=== PATIENT | female | born 1955 | race Caucasian/White ===

== ENCOUNTER 2024-01-03 18:18 | Inpatient (IN) | payer OTHER, SELFPAY ==
[2024-01-03] VITALS (24 sets, daily range): BP systolic 77–103; BP diastolic 44–69; BMI 24.6
[2024-01-03 12:23] LABS: Hematocrit 30.5 % (37.0-47.0); Hemoglobin 10.6 g/dL (12.0-16.0); Mean Corp Hgb Conc. 34.8 g/dL (33.0-37.0); Mean Corpuscular Hgb 29.6 pg (27.0-31.0); Mean Corpuscular Volume 85.2 fL (81.0-99.0); Mean Platelet Volume 7.9 fL (7.4-10.4); Nucleated Red Blood Cells % 0 %; Platelet Count 542 10^3/uL (130-400); Red Blood Cell Count 3.58 10^6/uL (4.20-5.40); White Blood Cell Count 10.3 10^3/uL (4.8-10.8)
[2024-01-03 12:35] LABS: ALT (SGPT) < 10 U/L (0-35); AST (SGOT) 20 U/L (14-36); Alkaline Phosphatase 167 U/L (38-126); Blood Urea Nitrogen 19 mg/dl (7-17); Calcium 8.2 mg/dl (8.4-10.2); Carbon Dioxide 23 mmol/L (22-30); Chloride 89 mmol/L (98-107); Glucose 109 mg/dl (70-99); Potassium 3.1 mmol/L (3.5-5.1); Sodium 121 mmol/L (135-145); eGFR 49.31
[2024-01-03 12:48] LABS: COVID-19 Antigen Negative (Negative)
[2024-01-03 13:11] LABS: Absolute Neutrophils -Man Diff 8.1 10^3/uL (1.4-6.5); Atypical Lymphocytes 3 %; Band Neutrophils 21 % (0-3); Lymphocytes 11 % (20-51); Metamyelocytes 1 % (-); Monocytes 5 % (2-9); Myelocytes 1 % (-); Segmented Neutrophils 58 % (42-75)
[2024-01-03 13:13] LABS: Acanthocytes FEW; Anisocytosis Slight; Hypochromasia Slight; Normal RBC Morphology No; Ovalocytes Slight; Platelets Checked Yes; Total Cells Counted 100
--- NOTE | 2024-01-03 13:56 | ED.GENMED ---
History of Present Illness
<Natalya Rodriguez NP - Last Filed: 01/03/24 21:44>
General
Chief Complaint: Cold/Flu/URI Symptoms
Source: patient and spouse
Exam Limitations: none
Time Seen by Provider: 01/03/24 13:56
Nursing documentation reviewed up to this point in time: agreed with
Travel History
Have you had any contact with someone who has COVID-19?: No
Do you have any symptoms of coronavirus? Fever > 100 degrees, chills, cough, shortness of breath, sore throat, loss of taste or smell, muscle aches, or headache?: No
History of Present Illness
History of Present Illness:
Patient to ED with complaint of fever/chills, n/v, fatigue. States she was admitted her approx 2.5 weeks ago with same. States she was discharged danny 1.5 weeks ago but did not feel ready. Her symptoms began to escalate the day after discharge
home. SHe was not seen by PCP after her discharge home. She spoke with PCP today and was advised to come to ED. Did not take temp at home but states she has had chills since her discharge. Limited po intake due to ongoing n/v. Brought to ED by
spouse for eval.
Past History
<Natalya Rodriguez NP - Last Filed: 01/03/24 21:44>
Past History
ED Past Medical History: HTN, Other (kidney stones, menieire's, mac degen, [place]) and Other (colitis)
ED Past Surgical History: Cholecystectomy, , Urological (multiple cystos) and Other (History of surgery for a ventral hernia. )
Social History
Tobacco: Non-smoker
Alcohol: None
Drug: None
Personal:
Living: with family
Employment: Employed
Family History
Family History: CAD
Review of Systems
<Natalya Rodriguez NP - Last Filed: 01/03/24 21:44>
Review of Systems
Allergies reviewed?: Yes
All Other Systems: ROS reviewed and negative except as documented in HPI and ROS
Constitutional: Reports fever, fatigue and chills
EENT: Reports no symptoms
Respiratory: Reports cough
Cardiac: Reports no symptoms
ABD/GI: Reports nausea, vomiting and diarrhea
: Reports no symptoms
Musculoskeletal: Reports no symptoms
Skin: Reports no symptoms
Neurological: Reports weakness
Hematologic/Lymphatic: Reports no symptoms
Psychiatric: Reports no symptoms
Phy Exam
<Natalya Rodriguez SEWAGE SCREEN OPERATOR - Last Filed: 01/03/24 21:44>
General Physical Exam
General Presentation: mild distress
General age: appears stated age
General Skin: warm and dry
General Habitus: normal
General Mental: alert
General Hydration: dry mucous membranes
ENT Exam
ENT Exam: EOMI, TM's normal and neck supple
Cardiovascular Exam
Cardiovascular Exam: regular rate/rhythm and no edema
Pulmonary Exam
Pulmonary Exam: lungs clear, no respiratory distress and chest non tender
Gastrointestinal Exam
Gastrointestinal Exam: normal bowel sounds, non tender and soft
Musculoskeletal Exam
Musculoskeletal Exam: full ROM and neuro vasc intact
Skin Exam
Skin Exam: normal color, warm/dry and no rash
Psychiatric Exam
Psychiatric Exam: normal mood/affect
Course
<Natalya Rodriguez SEWAGE SCREEN OPERATOR - Last Filed: 01/03/24 21:44>
Orders/Labs/Results
Orders:
Orders
01/03/24 12:00
COVID-19 Antigen Urgent
Source: Nasal Swab
Complete Blood Count/With Diff Urgent
Comprehensive Metabolic Panel Urgent
Erythrocyte Sed Rate Urgent
Comment: ADD ON
Magnesium Urgent
Comment: MAG ADDED ON BY FLOOR 3:50PM 01-03-24
Manual Differential Urgent
Influenza A+B Rapid Molecular Urgent
VICKI Source: Nasal Swab
Specimen Description:
01/03/24 14:06
0.9% Sodium Chloride 1000 ml [Nss] 1,000 ml IV BOLUS
Acetaminophen [Tylenol] 1,000 mg PO NOW STA
01/03/24 14:07
Ondansetron Injectable [Zofran] 4 mg IV NOW STA
01/03/24 14:08
CR Chest - 2 Views Urgent
Comment:
Reason For Exam: fever, cough
01/03/24 14:25
Lactate Level [Lactic Acid] Urgent
Blood Culture Urgent
VICKI Source: Blood/Venous
Specimen Description:
01/03/24 14:30
Potassium Chloride [KCl] 40 meq 0.9% Sodium Chloride 250 ml [Nss] 250 ml IV NOW
01/03/24 Dinner
Clear Liquid
At Your Request: Limited Participation
01/03/24 15:51
Add On- LAB Urgent
Tests Added?: magnesium
01/03/24 16:13
Consult Nephrology [NEPHROLOGY CONSULT] Urgent
Consulting Provider: Hussain Chawla V.
Was physician already notified: Yes
01/03/24 16:46
C-Reactive Protein Stat
Comment: ADDED TO SPECIMEN IN LAB
Procalcitonin Stat
PCT Algorithmm Indication: Sepsis
01/03/24 16:55
CT Abd/pelvis W Iv Cont Urgent
Comment:
Reason For Exam: fever, diarrhea
01/03/24 17:00
3% Sodium Chloride 250 ml [Sodium Chloride 3%] 250 ml IV ONCE
01/03/24 17:01
Admit/Transfer Patient As Directed
Co-Sign Provider:
Level of Care: Inpatient admission
Assign to:: IMU- Intermediate Care
Physician / Group: do, tutu
Diagnosis: Diarrhea, fever, hyponatremia
Reason for Hospitalization: Diarrhea, fever, hyponatremia
Expected length of stay greater than two midnights?: Yes
ELOS- Estimated Length of Stay in days: 3
I certify the patient meets the requirements for IP care: Yes
01/03/24 17:03
Code Status As Directed
Resuscitation Status: Full Code
01/03/24 17:06
Magnesium Sulfate 2 Gram/50 ml [Magnesium Sulfate] 2 gram in 50 ml IV NOW
01/03/24 17:07
Blood Culture Urgent
VICKI Source: Blood/Venous
Specimen Description:
01/03/24 18:00
Piperacillin/Tazo 2.25 Gram [Zosyn] 2.25 grams in 50 ml IV Q6H
01/03/24 18:18
Ova & Parasites Giardia/Crypto AG [Giardia/Cryptosporidium Ag] Urgent
VICKI Source: Feces/Stool
Specimen Description:
Date Specimen was Collected: 01/03/24
Time Specimen was Collected: 18:17
STOOL [C difficile Antigen & Toxins] Urgent
VICKI Source: Feces/Stool
Specimen Description:
Date Specimen was Collected: 01/03/24
Time Specimen was Collected: 18:17
Stool Culture Urgent
VICKI Source: Feces/Stool
Specimen Description:
Date Specimen was Collected: 01/03/24
Time Specimen was Collected: 18:17
01/03/24 19:18
Acetaminophen [Tylenol] 650 mg PO Q4HPRN PRN
Enoxaparin Sodium [Lovenox] 40 mg SC QPM
Guaifenesin [Mucinex] 600 mg PO BIDPRN PRN
Lactobac/Bifidobac [Visbiome] 1 cap PO DAILY
Midodrine [ProAmatine] 5 mg PO Q4HPRN PRN
Ondansetron Injectable [Zofran] 4 mg IV Q6HPRN PRN
Oxycodone [Roxicodone] 5 mg PO Q4HPRN PRN
01/03/24 19:18
Consult Gastroenterology [GASTROINTESTINAL CONSULT] Routine
Consulting Provider: Beto Lo
Was physician already notified: Yes
Reason for consult: diarrhea, fever
Activity As Directed
Activity Level: Ambulate
Vital Signs As Directed
Frequency: Per unit guidelines
DX Deep Vein Thrombosis Video Routine
01/03/24 20:00
Potassium Chloride [KCl] 40 meq PO Q6H
01/03/24 20:53
Osmolality, Random Urine Urgent
Date Specimen was Collected: 01/03/24
Time Specimen was Collected: 20:31
Urinalysis Reflex To Culture Urgent
Date Specimen was Collected: 01/03/24
Time Specimen was Collected: 20:31
Urine Sodium Urgent
Date Specimen was Collected: 01/03/24
Time Specimen was Collected: 20:31
01/03/24 22:00
Serum Osmolality Urgent
01/04/24 06:00
Basic Metabolic Panel IN AM
Basic Metabolic Panel IN AM
Complete Blood Count/With Diff IN AM
Cortisol, Random IN AM
Magnesium IN AM
TSH IN AM
Uric Acid IN AM
01/05/24 06:00
Magnesium IN AM
01/06/24 06:00
Magnesium IN AM
Abnormal Lab Results
01/03/24 01/03/24
12:00 16:46
RBC 3.58 L 10^6/uL
(4.20-5.40)
Hgb 10.6 L g/dL
(12.0-16.0)
Hct 30.5 L %
(37.0-47.0)
Plt Count 542 H 10^3/uL
(130-400)
Abs Neuts (Manual) 8.1 H 10^3/uL
(1.4-6.5)
Band Neutrophils 21 H %
(0-3)
Lymphocytes (Manual) 11 L %
(20-51)
ESR 87 H mm/hour
(0-20)
Sodium 121 L mmol/L
(135-145)
Potassium 3.1 L mmol/L
(3.5-5.1)
Chloride 89 L mmol/L
(98-107)
BUN 19 H mg/dl
(7-17)
Creatinine 1.2 H mg/dL
(0.6-1.0)
Glucose 109 H mg/dl
(70-99)
Calcium 8.2 L mg/dl
(8.4-10.2)
Magnesium 1.4 L mg/dl
(1.6-2.3)
Alkaline Phosphatase 167 H U/L
(38-126)
C-Reactive Protein 166.70 H mg/L
(0.0-10.00)
Total Protein 6.0 L g/dl
(6.3-8.2)
Albumin 3.0 L g/dl
(3.5-5.0)
Procalcitonin 0.42 H ng/ml
(0.0-0.25)
01/03/24 12:00
01/03/24 12:00
Vital Signs
Initial and Last Documented VS:
Initial Vital Signs
Temp Pulse BP Pulse Ox
102.8 F H 108 102/69 99
01/03/24 11:53 01/03/24 11:53 01/03/24 11:53 01/03/24 11:53
Last Documented Vital Signs
Temp Pulse Resp BP Pulse Ox
98.2 F 81 22 93/60 100
01/03/24 19:27 01/03/24 19:15 01/03/24 19:15 01/03/24 19:15 01/03/24 19:15
<Fady Wilcox MD - Last Filed: 01/03/24 18:12>
Orders/Labs/Results
Orders:
Orders
01/03/24 12:00
COVID-19 Antigen Urgent
Source: Nasal Swab
Complete Blood Count/With Diff Urgent
Comprehensive Metabolic Panel Urgent
Erythrocyte Sed Rate Urgent
Comment: ADD ON
Magnesium Urgent
Comment: MAG ADDED ON BY FLOOR 3:50PM 01-03-24
Manual Differential Urgent
Influenza A+B Rapid Molecular Urgent
VICKI Source: Nasal Swab
Specimen Description:
01/03/24 14:06
0.9% Sodium Chloride 1000 ml [Nss] 1,000 ml IV BOLUS
Acetaminophen [Tylenol] 1,000 mg PO NOW STA
01/03/24 14:07
Ondansetron Injectable [Zofran] 4 mg IV NOW STA
01/03/24 14:08
CR Chest - 2 Views Urgent
Comment:
Reason For Exam: fever, cough
01/03/24 14:25
Lactate Level [Lactic Acid] Urgent
Blood Culture Urgent
VICKI Source: Blood/Venous
Specimen Description:
01/03/24 14:30
Potassium Chloride [KCl] 40 meq 0.9% Sodium Chloride 250 ml [Nss] 250 ml IV NOW
01/03/24 Dinner
Clear Liquid
At Your Request: Limited Participation
01/03/24 15:51
Add On- LAB Urgent
Tests Added?: magnesium
01/03/24 16:13
Consult Nephrology [NEPHROLOGY CONSULT] Urgent
Consulting Provider: Hussain Chawla V.
Was physician already notified: Yes
01/03/24 16:46
C-Reactive Protein Stat
Comment: ADDED TO SPECIMEN IN LAB
Procalcitonin Stat
PCT Algorithmm Indication: Sepsis
01/03/24 16:55
CT Abd/pelvis W Iv Cont Urgent
Comment:
Reason For Exam: fever, diarrhea
01/03/24 17:00
3% Sodium Chloride 250 ml [Sodium Chloride 3%] 250 ml IV ONCE
01/03/24 17:01
Admit/Transfer Patient As Directed
Co-Sign Provider:
Level of Care: Inpatient admission
Assign to:: IMU- Intermediate Care
Physician / Group: tutu aleman
Diagnosis: Diarrhea, fever, hyponatremia
Reason for Hospitalization: Diarrhea, fever, hyponatremia
Expected length of stay greater than two midnights?: Yes
ELOS- Estimated Length of Stay in days: 3
I certify the patient meets the requirements for IP care: Yes
01/03/24 17:03
Code Status As Directed
Resuscitation Status: Full Code
01/03/24 17:06
Magnesium Sulfate 2 Gram/50 ml [Magnesium Sulfate] 2 gram in 50 ml IV NOW
01/03/24 17:07
Blood Culture Urgent
VICKI Source: Blood/Venous
Specimen Description:
01/03/24 18:00
Piperacillin/Tazo 2.25 Gram [Zosyn] 2.25 grams in 50 ml IV Q6H
01/03/24 18:18
Ova & Parasites Giardia/Crypto AG [Giardia/Cryptosporidium Ag] Urgent
VICKI Source: Feces/Stool
Specimen Description:
Date Specimen was Collected: 01/03/24
Time Specimen was Collected: 18:17
STOOL [C difficile Antigen & Toxins] Urgent
VICKI Source: Feces/Stool
Specimen Description:
Date Specimen was Collected: 01/03/24
Time Specimen was Collected: 18:17
Stool Culture Urgent
VICKI Source: Feces/Stool
Specimen Description:
Date Specimen was Collected: 01/03/24
Time Specimen was Collected: 18:17
01/03/24 19:18
Acetaminophen [Tylenol] 650 mg PO Q4HPRN PRN
Enoxaparin Sodium [Lovenox] 40 mg SC QPM
Guaifenesin [Mucinex] 600 mg PO BIDPRN PRN
Lactobac/Bifidobac [Visbiome] 1 cap PO DAILY
Midodrine [ProAmatine] 5 mg PO Q4HPRN PRN
Ondansetron Injectable [Zofran] 4 mg IV Q6HPRN PRN
Oxycodone [Roxicodone] 5 mg PO Q4HPRN PRN
01/03/24 19:18
Consult Gastroenterology [GASTROINTESTINAL CONSULT] Routine
Consulting Provider: Beto Lo
Was physician already notified: Yes
Reason for consult: diarrhea, fever
Activity As Directed
Activity Level: Ambulate
Vital Signs As Directed
Frequency: Per unit guidelines
DX Deep Vein Thrombosis Video Routine
01/03/24 20:00
Potassium Chloride [KCl] 40 meq PO Q6H
01/03/24 20:53
Osmolality, Random Urine Urgent
Date Specimen was Collected: 01/03/24
Time Specimen was Collected: 20:31
Urinalysis Reflex To Culture Urgent
Date Specimen was Collected: 01/03/24
Time Specimen was Collected: 20:31
Urine Sodium Urgent
Date Specimen was Collected: 01/03/24
Time Specimen was Collected: 20:31
01/03/24 22:00
Serum Osmolality Urgent
01/04/24 06:00
Basic Metabolic Panel IN AM
Basic Metabolic Panel IN AM
Complete Blood Count/With Diff IN AM
Cortisol, Random IN AM
Magnesium IN AM
TSH IN AM
Uric Acid IN AM
01/05/24 06:00
Magnesium IN AM
01/06/24 06:00
Magnesium IN AM
Abnormal Lab Results
01/03/24 01/03/24
12:00 16:46
RBC 3.58 L 10^6/uL
(4.20-5.40)
Hgb 10.6 L g/dL
(12.0-16.0)
Hct 30.5 L %
(37.0-47.0)
Plt Count 542 H 10^3/uL
(130-400)
Abs Neuts (Manual) 8.1 H 10^3/uL
(1.4-6.5)
Band Neutrophils 21 H %
(0-3)
Lymphocytes (Manual) 11 L %
(20-51)
ESR 87 H mm/hour
(0-20)
Sodium 121 L mmol/L
(135-145)
Potassium 3.1 L mmol/L
(3.5-5.1)
Chloride 89 L mmol/L
(98-107)
BUN 19 H mg/dl
(7-17)
Creatinine 1.2 H mg/dL
(0.6-1.0)
Glucose 109 H mg/dl
(70-99)
Calcium 8.2 L mg/dl
(8.4-10.2)
Magnesium 1.4 L mg/dl
(1.6-2.3)
Alkaline Phosphatase 167 H U/L
(38-126)
C-Reactive Protein 166.70 H mg/L
(0.0-10.00)
Total Protein 6.0 L g/dl
(6.3-8.2)
Albumin 3.0 L g/dl
(3.5-5.0)
Procalcitonin 0.42 H ng/ml
(0.0-0.25)
01/03/24 12:00
01/03/24 12:00
Vital Signs
Initial and Last Documented VS:
Initial Vital Signs
Temp Pulse BP Pulse Ox
102.8 F H 108 102/69 99
01/03/24 11:53 01/03/24 11:53 01/03/24 11:53 01/03/24 11:53
Last Documented Vital Signs
Temp Pulse Resp BP Pulse Ox
98.2 F 81 22 93/60 100
01/03/24 19:27 01/03/24 19:15 01/03/24 19:15 01/03/24 19:15 01/03/24 19:15
<Natalya Rodriguez NP - Last Filed: 01/03/24 21:44>
*Critical Care Note
Total Time (30-74mins, 75-104mins- exclusive of procedures): Not Applicable
<Natalya Rodriguez NP - Last Filed: 01/03/24 21:44>
Update Note
Update Note:
Patient to ED with complaint of fever/chills, weakness, n/v/d. States symptoms have been ongoing since her discharge from her 2.5 weeks ago. Reports poor appetite. Na today 121, K 3.1 creat 1.2. BP 90's systolic. Given 1L NSS rapidly. K rider
40meq also initiated. No stools since coming to ED. No urine at this time. Temp of 103 initially. Given tylenol 1000mg, temp now 100. She reports feeling somewhat better. Dr. Chawla consulted. Recommends NS 3% at 30cc/hr, order placed.
ED Attending Note
<Natalya Rodriguez NP - Last Filed: 01/03/24 21:44>
-
Portions of this chart may have been created with voice recognition software.� Occasional wrong word or��sound alike� substitutions may have occurred due to the inherent limitations of voice recognition software.
<Fady Wilcox MD - Last Filed: 01/03/24 18:12>
ED Attending Note
Patient seen and examined by attending physician: Yes
ED Attending Note:
Patient discharged home from the hospital 2 weeks ago, after being treated for electrolyte abnormalities secondary to presumed viral illness, returns to ED secondary to persistent intermittent cough, along with nausea, vomiting, and diarrhea.
Patient reports generalized weakness. Upon arrival, patient found to be febrile, which she was not aware of. Denies abdominal pain. Denies back pain. Denies chest pain. Denies headache. Denies neck pain. Denies loss of appetite, however does
state that she has lost weight since being discharged home.
Physical Exam
General: mild distress, not acutely ill. febrile. hypotensive. weak appearing.
Head: nc/at. eomi
Neck: supple. no meningeal signs.
Heart: s1/s2 regular rate and rhythm, no murmur. equal radial pulses.
Lungs: no acute respiratory distress. clear bilaterally
Abdomen: normal bowel sounds. not tender. no distention
Neuro: alert and oriented. no focal neurological deficits
Skin: no rash
Psychiatric: well kept. interactive and cooperative
Extremities: no edema. no calf tenderness.
History and exam concerning for ongoing viral illness, resulting in significant electrolyte abnormalities, including hyponatremia and hypokalemia. After discussion with nephrology, decision made to start patient on 3% sodium infusion. Patient will
be admitted for further evaluation and treatment. Blood pressure labile, remains mildly hypotensive. As such, will provide additional IV fluid bolus. If not improving, may need to start short course of pressor support.
Critical care statement: A total of 40 minutes of critical care time was provided for this patient. This includes management of unstable vital signs, evaluation of the patient at bedside, reviewing the patient's pertinent medical records, discussion
with consultants, review of old EKGs and review of pertinent medical records. This time with separate from time utilized to perform the aforementioned documented procedures
Discharge Plan
Departure
Patient Disposition: Admit
Date of Disposition: 01/03/24
Time of Disposition: 15:31
Presentation/result/management discussed w/ accepting MD/DO: Hospitalist
Condition: Fair
Covid-19: Not Applicable
Discharge Problem:
Acute hyponatremia, Dehydration
Interventions
Interventions:
*Risk Screen - Suicide Last Done: 01/03/24 19:33
*General Assessment Last Done: 01/03/24 19:33
*Neglect/Abuse Screening Last Done: 01/03/24 19:33
ED- Fall Risk Assessment Last Done: 01/03/24 15:35
*ED COVID-19 Vaccine History Last Done: 01/03/24 15:35
*Nursing Disposition Last Done: 01/03/24 19:33
ED- Pulmonary Assessment Last Done: 01/03/24 14:36
Discharge Date and Time
Discharge Date/Time: 01/03/24 19:35
[2024-01-03] MEDS: ZOFRAN 4 MG IV (14:21)
[2024-01-03] MEDS: NSS 1000 IV (14:22)
[2024-01-03] MEDS: TYLENOL 1000 MG PO (14:24)
[2024-01-03 14:48] LABS: Lactic Acid 1.2 mmol/L (0.7-2.0)
[2024-01-03] MEDS: KCL 270 MEQ IV (15:24)
[2024-01-03 16:26] LABS: Magnesium 1.4 mg/dl (1.6-2.3)
--- NOTE | 2024-01-03 16:36 | HPS.HSE ---
Family Physician
-
Family Physician: GABE Borrero
Chief Complaint
-
Persistent nausea and diarrhea
History of Present Illness
HPI: 68-year-old female with a past medical history of collagenous colitis, hypertension and chronic loose stools presents with a 3-4-week history of nausea, vomiting, and loose stools. Patient was admitted 12/16/2023 through 12/17/2023 for the same
symptoms and discharged. She states that she continued to be nauseous after discharge, with profuse diarrhea. States that this is different from her usual loose stools. She follows with Dr. Herring. She does have associated abdominal cramping with
her bowel movements. No vomiting since her previous hospital admission. She is febrile. No dysuria, no shortness of breath. Does have a dry cough.
Medical History
Past Medical History
Past Medical History: Reports Other
Additional Past Medical History:
Collagenous colitis
C. difficile diarrhea
E. coli diarrhea
Hypertension
M�ni�re's disease
Nephrolithiasis
Macular degeneration
Obstructive sleep apnea
Past Surgical History: Reports Other
Additional Past Surgical History:
�Cholecystectomy, (x2), Orthopedic (CTR b/l), Other (Ventral hernia repair)
Social History
Tobacco: Non-smoker
Alcohol: None
Drug: None
Personal:
Living: With Family
Family History
Family History: CAD
Allergies / Home Medications
Allergies reflects when Allergies were last updated in [facility].
Home Medications with original date entered in [facility]
Allergy/Medication List:
Allergies
Allergy/AdvReac Type Severity Reaction Status Date / Time
No Known Drug Allergies Allergy Unknown Verified 01/03/24 11:55
Home Medications Table - record
Medication Instructions Recorded Confirmed
guaifenesin 600 mg tablet, 600 mg PO BIDPRN PRN cough 12/16/23 01/03/24
extended release 12 hr
therapeutic multivitamin 1 tab PO DAILY Supplement 12/16/23 01/03/24
Lactobac no.2-Bifidobac no.1-S. 1 cap PO DAILY Supplement #0 caps 12/17/23 01/03/24
thermo 112.5 billion cell capsule
(Visbiome)
ondansetron HCl 4 mg tablet 4 mg PO Q6HPRN PRN nausea/vomiting 01/03/24 01/03/24
Review of Systems
-
A 12 point ROS was completed and negative except as noted: Yes
Physical Exam
Vital Signs
Vital Signs
Temp Pulse Resp BP Pulse Ox
100.5 F H 91 19 84/52 96
01/03/24 15:33 01/03/24 15:33 01/03/24 15:33 01/03/24 15:33 01/03/24 15:33
Physical Exam
General: No Apparent Distress
HEENT: NormoCephalic, Anicteric, Moist mucous membranes and Atraumatic
Respiratory: Clear
Cardiac: S1/S2 and Regular Rhythm
GI: Soft, Non Tender, Non Distended and Normal Bowel Sounds
Musculoskeletal: No Clubbing, No Cyanosis and No Edema
Neuro: Awake, Alert and Oriented
Psych: Calm
Laboratory Results
-
01/03/24 12:00
01/03/24 12:00
Laboratory Results
Lactic Acid 1.2 mmol/L (0.7-2.0) 01/03/24 14:25
Total Bilirubin 1.0 mg/dl (0.2-1.3) 01/03/24 12:00
AST 20 U/L (14-36) 01/03/24 12:00
ALT < 10 U/L (0-35) 01/03/24 12:00
Alkaline Phosphatase 167 U/L (38-126) H 01/03/24 12:00
Impression/Plan
-
HPI: 68-year-old female with a past medical history of collagenous colitis, hypertension and chronic loose stools presents with a 3-4-week history of nausea, vomiting, and loose stools. Patient was admitted 12/16/2023 through 12/17/2023 for the same
symptoms and discharged. She states that she continued to be nauseous after discharge, with profuse diarrhea. States that this is different from her usual loose stools. She follows with Dr. Herring. She does have associated abdominal cramping with
her bowel movements. No vomiting since her previous hospital admission. She is febrile. No dysuria, no shortness of breath. Does have a dry cough.
#Fever
#Bandemia
#Diarrhea
Check blood cultures x 2, check stool studies, check procalcitonin, check CT abdomen pelvis with IV and p.o. contrast
Consult GI, give Zosyn after cultures are drawn
#Hypotension
IV fluids, midodrine as needed
#Hyponatremia
Sodium 121, urine studies ordered
Nephrology consulted, recommended hypertonic saline
#Hypokalemia
Potassium 3.1, repeat
Recheck a.m. potassium
#Hypomagnesemia
Replete, recheck a.m. magnesium
#Stage III CKD
Creatinine 1.2, okay to have IV contrast per nephrology
#Chronic normocytic anemia
Monitor hemoglobin
DVT prophylaxis�subcu Lovenox
Full code
Total time spent to see the patient on the floor, examine the patient, review data and lab results, discuss treatment plan with patient, nursing staff around 75 minutes.
[2024-01-03] MEDS: SODIUM CHLORIDE 3% 250 IV (17:04)
[2024-01-03 17:21] LABS: Procalcitonin 0.42 ng/ml (0.0-0.25)
--- NOTE | 2024-01-03 17:24 | W.CON.NEPH ---
Consultation
-
Date/Time Consultation Requested: 01/03/2024 430pm
Date/Time Consultation Performed: 01/03/2024 4:30 PM
Requesting Provider:
Performing Provider: [place]
Reason for Consultation: Hyponatremia
Medical History
-
Chief Complaint: Hyponatremia
History of Present Illness:
The patient is a 68-year-old female with a past medical history of hyponatremia recently admitted a few weeks prior with hyponatremia thought to be due to hypovolemic hyponatremia. She was given IV fluids with normal saline and eventually
discharged with a serum sodium level of 129 on day 12/17/2023. During that initial admission in late November she had been having issues with nausea vomiting fevers chills failure to thrive and fatigue. She now presents with similar symptoms once
again and a serum sodium of 121. The patient is hypotensive with systolic blood pressures in the high 80s on presentation to the emergency. Her creatinine level is also slightly elevated at 1.2 and she is febrile. She has a past medical history
of hypertension but has been off her REGGIE inhibitor since her last admission. She is maintained on Zofran as an outpatient for her ongoing GI issues including vomiting and diarrhea. Nephrology was consulted for her hyponatremia.
Past Medical History
Obstructive sleep apnea
Prior history of nephrolithiasis
Past Medical History: HTN
Social History
No tobacco or alcohol abuse
Living: With Family
Family History
Notable for coronary artery disease but no CKD
Allergies / Home Medications
Allergy/AdvReac Type Severity Reaction Status Date / Time
No Known Drug Allergies Allergy Unknown Verified 01/03/24 11:55
Medication Instructions Recorded Confirmed Type
guaifenesin 600 mg tablet, 600 mg PO BIDPRN PRN cough 12/16/23 01/03/24 History
extended release 12 hr
therapeutic multivitamin 1 tab PO DAILY Supplement 12/16/23 01/03/24 History
Lactobac no.2-Bifidobac no.1-S. 1 cap PO DAILY Supplement #0 caps 12/17/23 01/03/24 Rx
thermo 112.5 billion cell capsule
(Visbiome)
ondansetron HCl 4 mg tablet 4 mg PO Q6HPRN PRN nausea/vomiting 01/03/24 01/03/24 History
Review of Systems
-
History Source: Patient
All other systems: Negative unless noted
Constitutional: Fever, Weight Loss, Fatigue, Sleep Disturbance and Chills
EENT: No Symptoms
Respiratory: No Symptoms
Cardiac: No Symptoms
Abdomen/GI: Nausea, Vomiting and Diarrhea (Decreased appetite)
: No Symptoms
Musculoskeletal: Edema (Noted edema)
Skin: No Symptoms
Neurological: No Symptoms
Endocrine: No Symptoms
Hematologic/Lymphatic: No Symptoms
Physical Exam
Vital Signs
Vital Signs
Temp Pulse Resp BP Pulse Ox
100.5 F H 86 21 95/57 96
01/03/24 15:33 01/03/24 16:42 01/03/24 16:42 01/03/24 17:15 01/03/24 16:30
Lab Results
01/03/24 12:00
01/03/24 12:00
WBC 10.3 10^3/uL (4.8-10.8) 01/03/24 12:00
RBC 3.58 10^6/uL (4.20-5.40) L 01/03/24 12:00
Hgb 10.6 g/dL (12.0-16.0) L 01/03/24 12:00
Hct 30.5 % (37.0-47.0) L 01/03/24 12:00
Plt Count 542 10^3/uL (130-400) H 01/03/24 12:00
Sodium 121 mmol/L (135-145) L 01/03/24 12:00
Potassium 3.1 mmol/L (3.5-5.1) L 01/03/24 12:00
Chloride 89 mmol/L (98-107) L 01/03/24 12:00
Carbon Dioxide 23 mmol/L (22-30) 01/03/24 12:00
BUN 19 mg/dl (7-17) H 01/03/24 12:00
Creatinine 1.2 mg/dL (0.6-1.0) H 01/03/24 12:00
eGFR 49.31 01/03/24 12:00
Glucose 109 mg/dl (70-99) H 01/03/24 12:00
Calcium 8.2 mg/dl (8.4-10.2) L 01/03/24 12:00
Albumin 3.0 g/dl (3.5-5.0) L 01/03/24 12:00
Physical Exam
General: Awake, AOx3 and No Distress
HEENT: PERRL, EOMI, Anicteric, Conjunctivae Clear, Ear/Nose Intact, Hearing Normal, Oropharynx Clear/Moist, Dentition Intact, Neck Supple, Trachea Midline, No JVD and No Thyromegaly
Respiratory: Clear and Normal Excursion
Cardiac: S1/S2 and Edema (Trace edema)
Breast: Deferred by me
Abdomen: Soft, Nontender, Nondistended, Normal Bowel Sounds and No Hepatosplenomegaly
Rectal: Deferred by Provider
Genito-urinary: No Costovertebral Tender
Musculoskeletal: No Clubbing, No Cyanosis and Other (Trace edema pretibial)
Skin: No Rash
Neuro: Nonfocal/Grossly Intact
Hematologic/Lymphatic: No Cervical Lymphadenopathy, No Submandibular Lymphadenopathy and No Supraclavicular Lymphadenopathy
Psych: Mood/afflect pleasant, Insight/judgement good and Appropriate
Assessment/Plan
-
Impression:
Hyponatremia: Euvolemic/Hypovolemic
Hypokalemia
Fevers/nausea/vomiting/diarrhea/failure to thrive
History of nephrolithiasis
History of obstructive sleep apnea
Plan:
Hyponatremia
-Will provide 3% saline at 30 cc/h for a total of 250 cc
-Fluid restriction of 48 ounces daily
-Follow-up serum uric acid level TSH, cortisol, urine osmolarity, urine sodium
-Patient will have blood cultures and CAT scan of abdomen and pelvis to workup GI symptoms and fever and hypotension
Hypokalemia
-Likely due to ongoing GI losses and poor intake
-Replete potassium
[2024-01-03] MEDS: MAGNESIUM SULFATE 50 IV (18:13)
[2024-01-03 18:52] LABS: Erythrocyte Sed Rate 87 mm/hour (0-20)
[2024-01-03] MEDS: TYLENOL 650 MG PO (20:36)
[2024-01-03] MEDS: ProAmatine 5 MG PO (20:36)
[2024-01-03] MEDS: VISBIOME 1 CAP PO (20:36)
[2024-01-03] MEDS: KCL 40 MEQ PO (20:37)
[2024-01-03] MEDS: LOVENOX 40 MG SC (20:37)
[2024-01-03] MEDS: NSS with KCL 40 MEQ 1000 IV (20:37)
[2024-01-03] MEDS: ZOSYN 50 IV (20:45)
[2024-01-03 21:01] LABS: Urine Albumin Trace (Neg - Trace); Urine Bilirubin Negative (Negative); Urine Character Slightly Cloudy (Clear); Urine Color Yellow; Urine Glucose Negative (Negative); Urine Ketone Negative (Negative); Urine Leukocyte 1+ (Negative); Urine Nitrite Negative (Negative); Urine Occult Blood Negative (Negative); Urine Urobilinogen Negative (Neg - 1+)
[2024-01-03 21:02] LABS: Osmolality Urine 141 mOsm/kg (300-900)
[2024-01-03 21:10] LABS: Urine Red Blood Cell None Seen /HPF (0-2); Urine Squamous Cell >30 /LPF (Few); Urine White Cell 21-25 /HPF (0-5)
[2024-01-03 21:12] LABS: Urine Sodium 10 mmol/L (30-90)
[2024-01-03 23:17] LABS: Osmolality Serum 260 mOsm/kg (275-300)
[2024-01-04] VITALS (17 sets, daily range): BP systolic 81–128; BP diastolic 54–81
[2024-01-04] MEDS: ZOSYN 50 IV ×5 (00:35→23:02)
[2024-01-04] MEDS: KCL PO (02:03)
--- NOTE | 2024-01-04 02:55 | PTCARENOTE ---
pt admitted from ED- pt is AAOx3- able to make needs known. able to walk x1 assist, little weak. using BSC. BP's little soft- PRN midodrine given per JAN. IV fluids hung, oriented to room, call burton within reach, care ongoing.
[2024-01-04] MEDS: ProAmatine 5 MG PO (04:07)
[2024-01-04 04:28] LABS: Hematocrit 27.4 % (37.0-47.0); Hemoglobin 9.5 g/dL (12.0-16.0); Mean Corp Hgb Conc. 34.7 g/dL (33.0-37.0); Mean Corpuscular Hgb 29.5 pg (27.0-31.0); Mean Corpuscular Volume 85.1 fL (81.0-99.0); Mean Platelet Volume 7.8 fL (7.4-10.4); Platelet Count 413 10^3/uL (130-400); Red Blood Cell Count 3.22 10^6/uL (4.20-5.40); Red Cell Dist. Width 13.4 % (11.5-14.5); White Blood Cell Count 8.9 10^3/uL (4.8-10.8)
[2024-01-04 04:58] LABS: Blood Urea Nitrogen 16 mg/dl (7-17); Calcium 7.4 mg/dl (8.4-10.2); Carbon Dioxide 15 mmol/L (22-30); Chloride 110 mmol/L (98-107); Estimated Creatinine Clearance 39 ml/min; Glucose 94 mg/dl (70-99); Magnesium 2.2 mg/dl (1.6-2.3); Potassium 4.8 mmol/L (3.5-5.1); Sodium 131 mmol/L (135-145); Uric Acid 7.8 mg/dl (2.5-6.2); eGFR > 60.00
[2024-01-04 05:24] LABS: TSH 0.13 uIU/ml (0.47-4.68)
[2024-01-04 05:25] LABS: Cortisol, Random 56.8 ug/dl
[2024-01-04 07:57] LABS: Band Neutrophils 21 % (0-3); Lymphocytes 7 % (20-51); Monocytes 2 % (2-9); Normal RBC Morphology Yes; Platelets Checked Yes; Segmented Neutrophils 70 % (42-75)
[2024-01-04 07:58] LABS: Total Cells Counted 100
[2024-01-04] MEDS: VISBIOME 1 CAP PO (08:12)
--- NOTE | 2024-01-04 08:49 | W.PN.HOSP.TC ---
Today's Communication/Plan
-
see bold
Assessment / Plan
Assessment / Plan
HPI: 68-year-old female with a past medical history of collagenous colitis, hypertension and chronic loose stools presents with a 3-4-week history of nausea, vomiting, and loose stools.� Patient was admitted 12/16/2023 through 12/17/2023 for the same
symptoms and discharged.� She states that she continued to be nauseous after discharge, with profuse diarrhea.� States that this is different from her usual loose stools.� She follows with Dr. Herring.� She does have associated abdominal cramping with
her bowel movements.� No vomiting since her previous hospital admission.� She is febrile.� No dysuria, no shortness of breath.� Does have a dry cough.
#Fever
#Bandemia
#Diarrhea
CRP 166, ESR 87, procalcitonin 0.42
C. difficile negative, Cryptosporidium negative, stool cultures pending, blood culture negative to date
CT abdomen and pelvis shows pancolitis
GI consulted, continue Zosyn, follow-up on stool cultures, may need flex sigmoidoscopy
#Hypotension
IV fluids, midodrine as needed
Maintain MAP greater than 65
#Hyponatremia
Cortisol normal, TSH low, check free T4
Appreciate nephrology input, sodium 131 today status post hypertonic saline, was 121 upon admission
Continue management as per nephrology
#Non-anion gap metabolic acidosis
Due to diarrhea, start oral sodium bicarb
#Hypokalemia
Repleted and resolved
#Hypomagnesemia
Repleted and resolved
#Stage III CKD
Creatinine 1.0, was 1.2
Continue to trend
#Chronic normocytic anemia
Monitor hemoglobin
DVT prophylaxis�subcu Lovenox
Full code
Total time spent to see the patient on the floor, examine the patient, review data and lab results, discuss treatment plan with patient,� nursing staff� around 51 minutes.
Physical Exam
General: No acute distress
HEENT: Normocephalic, Atraumatic, EOMI, MMM
Respiratory: Clear to Auscultation bilaterally
Cardiac: Normal S1/S2, Regular Rate and Rhythm
GI: Soft, mild tenderness, Nondistended, Normal Bowel Sounds
Extremities: No Clubbing, Cyanosis, or Edema
Anticipated Discharge: > 48 hours
Subjective/Interval History
-
Date of Service: January 04, 2024
Patient continues to have diarrhea. No nausea, no vomiting. She is tolerating her clear liquid diet. Fever resolved.
Objective Data
-
Labs:
Laboratory Results
01/04/24
04:19
WBC 8.9
Hgb 9.5 L
Hct 27.4 L
Plt Count 413 H D
Sodium 131 L D
Potassium 4.8 D
Chloride 110 H
Carbon Dioxide 15 L
BUN 16
Creatinine 1.0
Glucose 94
Calcium 7.4 L
Vital Signs:
Vital Signs
Temp Pulse Resp BP Pulse Ox
97.8 F 72 14 128/72 99
01/04/24 07:29 01/04/24 06:00 01/04/24 06:00 01/04/24 06:00 01/04/24 05:00
I&O
01/03/24 01/04/24 01/05/24
06:59 06:59 06:59
Intake Total 950 / 950
Balance 950 / 950
--- NOTE | 2024-01-04 10:00 | PTCARENOTE ---
Patient AAOx3. C/o diarrhea, denies nausea. Tolerating CLD, reports appetite improving. NSR on monitor. BPs soft, MD aware, PRNs if needed. C/o chills, no fever. Patient making needs known. Continuing to closely monitor patient.
--- NOTE | 2024-01-04 10:18 | W.PN.NEPH.PH ---
Today's Communication / Plan
-
Maintain fluid restriction
No more 3% saline today
Follow electrolyte
Pancolitis workup in process
Assessment/Plan
-
Impression:
Hyponatremia: Euvolemic/Hypovolemic
Hypokalemia
Fevers/nausea/vomiting/diarrhea/failure to thrive
History of nephrolithiasis
History of obstructive sleep apnea
Plan:
Hyponatremia
-provided 3% saline at 30 cc/h for a total of 250 cc, and sodium up from 121 to 131
-Fluid restriction of 48 ounces daily to continue, no more 3%
-Follow-up serum uric acid level TSH, cortisol, urine osmolarity, urine sodium: Uric acid 7.8, TSH 0.13, cortisol 57, urine osmolality 141 (no consistent with SIADH),urine sodium 10
-I suspect the patient's hyponatremia is likely due more to volume depletion and excess water intake as opposed to underlying SIADH mediated process given urine osmolality of 140
-Follow-up free T4
-Cultures pending
-Patient will have blood cultures and CAT scan of abdomen and pelvis to workup GI symptoms and fever and hypotension
-CT scan of abdomen reveals pancolitis
-
-
Date of Service: January 04, 2024
CC / HPI / ROS
-
Chief Complaint:
Hyponatremia
History of Present Illness:
Hyponatremia improved from 121-131 with 250 cc of 3% saline and fluid restrict
Hemodynamically labile
Review of Systems:
Nonoliguric
No chest pain or shortness of breath
poor po intake
Labs
-
Labs:
WBC 8.9 10^3/uL (4.8-10.8) 01/04/24 04:19
RBC 3.22 10^6/uL (4.20-5.40) L 01/04/24 04:19
Hgb 9.5 g/dL (12.0-16.0) L 01/04/24 04:19
Hct 27.4 % (37.0-47.0) L 01/04/24 04:19
Plt Count 413 10^3/uL (130-400) H D 01/04/24 04:19
Sodium 131 mmol/L (135-145) L D 01/04/24 04:19
Potassium 4.8 mmol/L (3.5-5.1) D 01/04/24 04:19
Chloride 110 mmol/L (98-107) H 01/04/24 04:19
Carbon Dioxide 15 mmol/L (22-30) L 01/04/24 04:19
BUN 16 mg/dl (7-17) 01/04/24 04:19
Creatinine 1.0 mg/dL (0.6-1.0) 01/04/24 04:19
eGFR > 60.00 01/04/24 04:19
Glucose 94 mg/dl (70-99) 01/04/24 04:19
Calcium 7.4 mg/dl (8.4-10.2) L 01/04/24 04:19
Albumin 3.0 g/dl (3.5-5.0) L 01/03/24 12:00
Physical Exam
-
Vital Signs:
Vital Signs
Temp Pulse Resp BP Pulse Ox
97.8 F 72 14 128/72 99
01/04/24 07:29 01/04/24 06:00 01/04/24 06:00 01/04/24 06:00 01/04/24 05:00
Cardiovascular:: Regular rate and rhythm
Respiratory:: Bilateral: CTA
Lung Excursion:: Normal
Abdomen:: Nontender and Soft
Bowel Sounds:: Decreased
Extremity Edema:: +1: Bilateral: (trace pitting edema)
Garza Catheter: No
[2024-01-04] MEDS: NSS 1000 IV ×2 (10:24→23:01)
[2024-01-04] MEDS: NSS with KCL 40 MEQ IV (10:26)
--- NOTE | 2024-01-04 11:38 | CON.GI ---
Addendum entered and electronically signed by Beto Lo MD 01/04/24 18:35:
I saw and examined the patient.
The PA's note was reviewed and I agree with the note.
Comment:
The patient is a 68 year-old female with h/o HTN, collagenous colitis, C. difficile x 3, E. coli 0157: H7, obstructive sleep apnea who p/w fevers, nausea,�diarrhea, chills and fatigue.� The patient had similar presentation 2 weeks ago and was sent
home. She had ongoing fevers, chills, myalgias and severe fatigue.� She was febrile at 102.8 and then went up to 103.4 �F in ER.� The patient was -ve for flu.�
Impression / Rec:
1. Diarrhea, fever, chills, fatigue - unclear etiology. Most consistent with infectious source, however currently shiga toxin, C. difficile, cryptosporidium and Giardia are all -ve.� We are still awaiting stool for Salmonella and Campylobacter.�
Blood cx -ve for growth.� COVID -ve.� She has electrolyte derangement likely from diarrhea (Na 121, K 3.1), seen by nephrology and being corrected.� Patient's sed rate is 87, CRP is 166.70, CT abdo/pel with IV contrast showed pancolitis. Will need
to wait for few stool study results, but ultimately, will likely need a repeat endo eval with biopsies which may find diagnosis. Should also consider ID consult. Will follow.
Addendum entered and electronically signed by GABE Neil 01/04/24 13:12:
Patient was treated in the past with Lialda for short period of time for lymphocytic colitis. Patient states that she did not get much of a response from this and was changed to probiotics since. She had a repeat colonoscopy in 2020 that did not
look like microscopic colitis, rather resolving infection. Stools have been the same since that time until now.
Original Note:
Consultation
-
Date/Time Consultation Requested: 01/03/24 1915
Date/Time Consultation Performed: 01/04/24 1100
Requesting Provider: Dr. Eligio Foy
Performing Provider: Dr. Lo/GABE Murcia
Reason for Consultation: diarrhea
Medical History
Chief Complaint / HPI
Chief Complaint: Fevers, chills, nausea, diarrhea and fatigue
History of Present Illness:
68-year-old female with past medical history of hypertension, collagenous colitis, C. difficile x 3, E. coli 0157: H7, obstructive sleep apnea presents to the emergency room with fevers, nausea, diarrhea, chills and fatigue. The patient had
similar symptoms 2 weeks prior and was admitted to observation for the same but responded to IV fluids for nausea vomiting and diarrhea. She did not have the fevers or chills at that time while in the hospital. The patient states that she did not
feel well a couple days later and then proceeded to have symptoms again. She was instructed to come to the emergency room because of these constellation symptoms. The patient states that she has had ongoing fevers, chills, myalgias and severe
fatigue. She states that the vomiting stopped however she had progressive nausea and dry heaves. She also had diarrhea that is different from her usual bowel habits. In the past she usually has a soft bowel movement in the morning followed by 2
looser small bowel movements. This has been ongoing for years. She usually takes a probiotic daily. Since the end of November she states that she is having 5-7 loose to watery bowel movements a day which she states are brown, foul-smelling with
urgency and cramping. She denies any mucus or blood within these bowel movements. She denies any recent travel except for her sister's house a couple months back. She denies any changes in medications, recent antibiotics, recent sick contacts.
She does not eat any raw food. She does not recall eating anything spoiled.
Past Medical History
Past Medical History: HTN and Other (CDiff of x 2 (2018) recurrent 2020, collagenous colitis (2012), anemia, STEC E. coli 0157:H7/Shiga toxin (September 2020), bilateral L5 pars defect, obstructive sleep apnea, hyponatremia, kidney stones, M�ni�re's
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
Past Surgical History: Cholecystectomy, and Other (Ventral hernia repair, cystoscopy)
Social History
Tobacco: Non-Smoker
Alcohol: None
Personal:
Living: With Family
Employment: Employed
Family History
Family History: Other (Father with history of colon cancer. No other family members with GI malignancy. No family with inflammatory bowel disease.)
Allergies / Home Medications
Allergy/AdvReac Type Severity Reaction Status Date / Time
No Known Drug Allergies Allergy Unknown Verified 01/03/24 11:55
Medication Instructions Recorded
guaifenesin 600 mg tablet, 600 mg PO BIDPRN PRN cough 12/16/23
extended release 12 hr
therapeutic multivitamin 1 tab PO DAILY Supplement 12/16/23
Lactobac no.2-Bifidobac no.1-S. 1 cap PO DAILY Supplement #0 caps 12/17/23
thermo 112.5 billion cell capsule
(Visbiome)
ondansetron HCl 4 mg tablet 4 mg PO Q6HPRN PRN nausea/vomiting 01/03/24
Review of Systems
Vital Signs
Temp Pulse Resp BP Pulse Ox
97.8 F 62 22 87/54 100
01/04/24 07:29 01/04/24 10:03 01/04/24 10:03 01/04/24 10:03 01/04/24 10:03
Physical Exam
Exam
General: No Apparent Distress
HEENT: Normocephalic and Anicteric
Respiratory: Clear
Cardiac: Regular Rhythm
GI: Soft, Non Tender, Non Distended and Normal Bowel Sounds
Musculoskeletal: No Edema
Skin: Warm and Dry
Neuro: AO x 3
Psych: Calm
Results
WBC 8.9 10^3/uL (4.8-10.8) 01/04/24 04:19
Hgb 9.5 g/dL (12.0-16.0) L 01/04/24 04:19
Hct 27.4 % (37.0-47.0) L 01/04/24 04:19
MCV 85.1 fL (81.0-99.0) 01/04/24 04:19
Plt Count 413 10^3/uL (130-400) H D 01/04/24 04:19
Absolute Neuts (auto) Not Reportable 01/04/24 04:19
Sodium 131 mmol/L (135-145) L D 01/04/24 04:19
Potassium 4.8 mmol/L (3.5-5.1) D 01/04/24 04:19
Chloride 110 mmol/L (98-107) H 01/04/24 04:19
Carbon Dioxide 15 mmol/L (22-30) L 01/04/24 04:19
BUN 16 mg/dl (7-17) 01/04/24 04:19
Creatinine 1.0 mg/dL (0.6-1.0) 01/04/24 04:19
Calcium 7.4 mg/dl (8.4-10.2) L 01/04/24 04:19
Total Bilirubin 1.0 mg/dl (0.2-1.3) 01/03/24 12:00
AST 20 U/L (14-36) 01/03/24 12:00
ALT < 10 U/L (0-35) 01/03/24 12:00
Alkaline Phosphatase 167 U/L (38-126) H 01/03/24 12:00
Diagnostic Image Results:
CT of the abdomen pelvis with IV contrast:
IMPRESSION:
Nonspecific pancolitis.
No bowel obstruction.
Small hiatal hernia.
Electronically signed by Checo Alvarez MD 01/03/2024 7:57 PM
Prior GI Procedures:
EGD:
Colonoscopy 01/26/21 (Herring) - Diverticulosis in the sigmoid colon.
�� � � � � � � � � � � - Erythematous mucosa in the rectum. Biopsied.
�� � � � � � � � � � � - Biopsies were taken with a cold forceps from the
�� � � � � � � � � � � entire colon for evaluation of microscopic colitis.
-Biopsy with mild acute colitis with foci of cryptitis and increased acute and chronic inflammation with eosinophils in the lamina propria. There are no definite features to suggest a microscopic colitis such as collagenous colitis. Biopsy
findings may resent an infectious colitis however other etiologies such as early IBD or diverticulitis cannot be entirely excluded.
,
Colonoscopy:� 2012 Herring: diarrhea and father with CRC: sigmoid diverticulosis and internal hemorrhoids. +collagenous colitis
Assessment / Plan
-
68-year-old female with past medical history of hypertension, collagenous colitis, C. difficile x 3, E. coli 0157: H7, obstructive sleep apnea presents to the emergency room with fevers, nausea, diarrhea, chills and fatigue. The patient had
similar symptoms 2 weeks prior and was admitted to observation for the same but responded to IV fluids for nausea vomiting and diarrhea. She did not have the fevers or chills at that time while in the hospital. The patient states that she did not
feel well a couple days later and then proceeded to have symptoms again. She was instructed to come to the emergency room because of these constellation symptoms. The patient states that she has had ongoing fevers, chills, myalgias and severe
fatigue. The patient has also had a dry cough for approximately 1 month. Upon arrival to the emergency room she was febrile at 102.8 and then went up to 103.4 �F. The patient was negative for flu in November and is also negative at this time.
Blood cultures are pending. Stool for Shiga toxin is negative. Stool for C. difficile is negative. Stool for Cryptosporidium and Giardia are negative. We are still awaiting stool for Salmonella and Campylobacter. Blood culture and urine culture
results are still pending as well. She is COVID-negative. Patient was started on Zosyn empirically after cultures were drawn. She was found to have a hyponatremia with a sodium of 121 and has been seen by nephrology. She also had a hypokalemia
and hypomagnesemia which are being repleted. Patient also had significant hypotension with her blood pressure in the 80s and was started on midodrine in addition to IV fluids. The patient never had a significantly elevated white count as this was
10.3 and following day was 8.9. However she did have significant bandemia of 21. Patient's sed rate is 87, CRP is 166.70, CT of the abdomen and pelvis with IV contrast shows nonspecific pancolitis, no bowel obstruction and a small hiatal hernia.
Impression:
1. Diarrhea
2. Fever/bandemia
3. Electrolyte imbalance (hypokalemia, hyponatremia, hypomagnesemia)
4. Elevated alk phos
5. Low TSH (0.13)
6. History of lymphocytic colitis currently on Visbiome
Plan:
-Await stool for Salmonella and Shigella
-Continue IV fluid/electrolyte repletion
-Await pending urine and blood culture
-Check GGTP
-Recommend free T4/T3 given low TSH, will [place] text medicine attending
-Patient may need flexible sigmoidoscopy before initiating other medications given bandemia
Data Reviewed
-
Radiology: Report Reviewed by me
CT Scan: Report Reviewed by me
Old Records: Reviewed
-
-
Thank you for consultation and allowing me to participate in the patient's care. Please call the mechatronics technician GI physician during the after hours with any questions or concerns.
[2024-01-04 14:23] LABS: Free T4 2.09 ng/dl (0.78-2.19)
--- NOTE | 2024-01-04 17:12 | CM ---
Patient with Dx Fever, Bandemia, Diarrhea, Hypotension. Receiving IV Zosyn.
Met with patient who resides with her in a 3 story house, with bedroom/bath on the 3rd floor attic.
The patient has been independent in ADLs and ambulation.
She has no DME.
Prior [facility]
No prior SNF.
PCP - Lesli Gann
[facility] - [facility]
No CM d/c needs identified.
Plan home.
[2024-01-04] MEDS: LOVENOX 40 MG SC (17:14)
[2024-01-04] MEDS: SODIUM BICARBONATE 1950 MG PO ×2 (17:15→21:13)
[2024-01-05] VITALS (13 sets, daily range): BP systolic 80–123; BP diastolic 52–76
[2024-01-05] MEDS: ZOSYN 50 IV (05:40)
[2024-01-05] MEDS: TYLENOL 650 MG PO (05:55)
[2024-01-05 06:19] LABS: Hemoglobin 9.3 g/dL (12.0-16.0); Mean Corp Hgb Conc. 34.3 g/dL (33.0-37.0); Mean Corpuscular Hgb 29.5 pg (27.0-31.0); Mean Platelet Volume 8.1 fL (7.4-10.4); Nucleated Red Blood Cells % 0 %; Platelet Count 453 10^3/uL (130-400); Red Blood Cell Count 3.15 10^6/uL (4.20-5.40); Red Cell Dist. Width 13.7 % (11.5-14.5); White Blood Cell Count 12.2 10^3/uL (4.8-10.8)
[2024-01-05 06:21] LABS: Hematocrit 27.1 % (37.0-47.0)
[2024-01-05 06:37] LABS: Blood Urea Nitrogen 10 mg/dl (7-17); Calcium 7.2 mg/dl (8.4-10.2); Carbon Dioxide 19 mmol/L (22-30); Chloride 109 mmol/L (98-107); Estimated Creatinine Clearance 49 ml/min; GGTP 28 U/L (12-43); Glucose 91 mg/dl (70-99); Magnesium 1.9 mg/dl (1.6-2.3); Potassium 3.8 mmol/L (3.5-5.1); Sodium 132 mmol/L (135-145); eGFR > 60.00
[2024-01-05 06:54] LABS: Free T4 1.57 ng/dl (0.78-2.19)
[2024-01-05 07:41] LABS: Band Neutrophils 12 % (0-3); Eosinophils 1 % (0-6); Lymphocytes 9 % (20-51); Monocytes 8 % (2-9); Segmented Neutrophils 70 % (42-75)
[2024-01-05 07:42] LABS: Hypochromasia 1+; Normal RBC Morphology No; Platelets Checked Yes
[2024-01-05 07:43] LABS: Total Cells Counted 100; Toxic Granulation Moderate
--- NOTE | 2024-01-05 07:53 | W.PN.HOSP.TC ---
Addendum entered and electronically signed by Marco Foy MD 01/05/24 16:31:
Patient also has acute kidney injury
Original Note:
Today's Communication/Plan
-
See bold
Assessment / Plan
Assessment / Plan
HPI: 68-year-old female with a past medical history of collagenous colitis, hypertension and chronic loose stools presents with a 3-4-week history of nausea, vomiting, and loose stools.� Patient was admitted 12/16/2023 through 12/17/2023 for the same
symptoms and discharged.� She states that she continued to be nauseous after discharge, with profuse diarrhea.� States that this is different from her usual loose stools.� She follows with Dr. Herring.� She does have associated abdominal cramping with
her bowel movements.� No vomiting since her previous hospital admission.� She is febrile.� No dysuria, no shortness of breath.� Does have a dry cough.
#Fever
#Bandemia
#Diarrhea
CRP 166, ESR 87, procalcitonin 0.42
C. difficile negative, Cryptosporidium negative, stool cultures pending, blood culture negative to date
CT abdomen and pelvis shows pancolitis
GI consulted, change Zosyn to Unasyn, follow-up on stool cultures, may need flex sigmoidoscopy
#Hypotension
IV fluids, midodrine as needed
Maintain MAP greater than 65
#Hyponatremia
Cortisol normal, TSH low, check free T4
Appreciate nephrology input, sodium 132 today, was 131, status post hypertonic saline, was 121 upon admission
Continue management as per nephrology
#Non-anion gap metabolic acidosis
Due to diarrhea, improved on oral sodium bicarb
#Hypokalemia
Repleted and resolved
#Hypomagnesemia
Repleted and resolved
#Stage III CKD
Creatinine 0.8, was 1.0, was 1.2
Continue to trend
#Chronic normocytic anemia
Monitor hemoglobin
DVT prophylaxis�subcu Lovenox
Full code
Total time spent to see the patient on the floor, examine the patient, review data and lab results, discuss treatment plan with patient,� nursing staff� around 51 minutes.
Physical Exam
General: No acute distress
HEENT: Normocephalic, Atraumatic, EOMI, MMM
Respiratory: Clear to Auscultation bilaterally
Cardiac: Normal S1/S2, Regular Rate and Rhythm
GI: Soft, mild tenderness, Nondistended, Normal Bowel Sounds
Extremities: No Clubbing, Cyanosis, or Edema
Anticipated Discharge: > 48 hours
Subjective/Interval History
-
Date of Service: January 05, 2024
Patient reports not sleeping well yesterday. Continues to have loose stools, no blood.
Objective Data
-
Labs:
Laboratory Results
01/05/24
05:45
WBC 12.2 H
Hgb 9.3 L
Hct 27.1 L
Plt Count 453 H
Sodium 132 L
Potassium 3.8
Chloride 109 H
Carbon Dioxide 19 L
BUN 10
Creatinine 0.8
Glucose 91
Calcium 7.2 L
Vital Signs:
Vital Signs
Temp Pulse Resp BP Pulse Ox
98.7 F 81 17 100/70 99
01/05/24 03:20 01/05/24 06:00 01/05/24 06:00 01/05/24 06:00 01/05/24 06:00
I&O
01/04/24 01/05/24 01/06/24
06:59 06:59 06:59
Intake Total 950 / 950 1505 / 1505
Balance 950 / 950 1505 / 1505
[2024-01-05] MEDS: SODIUM BICARBONATE 1950 MG PO ×3 (08:33→20:17)
[2024-01-05] MEDS: VISBIOME 1 CAP PO (08:33)
--- NOTE | 2024-01-05 10:11 | PTCARENOTE ---
Addendum entered by Geraldo Chery RN 01/05/24 16:25:
Patient ate low res diet for lunch which was followed by a lot of sharp stomach pains and increase in diarrhea. After 2 diarrheas stomach feels 'uneasy.' MD Espinosa notified, diet changed to full liquid.
Original Note:
Patient AAOx3. C/o diarrhea still. No pain or discomfort. VSS. 95% on RA. NSR. Continuing to closely monitor patient.
--- NOTE | 2024-01-05 12:06 | W.PN.GI.CBS2 ---
Today's Communication / Plan
-
follow up stool studies, monitor BM
Assessment / Plan
-
68-year-old female with past medical history of hypertension, collagenous colitis, C. difficile x 3, E. coli 0157: H7, obstructive sleep apnea presents to the emergency room with fevers, nausea, diarrhea, chills and fatigue. The patient had
similar symptoms 2 weeks prior and was admitted to observation for the same but responded to IV fluids for nausea vomiting and diarrhea. She did not have the fevers or chills at that time while in the hospital. The patient states that she did not
feel well a couple days later and then proceeded to have symptoms again. She was instructed to come to the emergency room because of these constellation symptoms. The patient states that she has had ongoing fevers, chills, myalgias and severe
fatigue. The patient has also had a dry cough for approximately 1 month. Upon arrival to the emergency room she was febrile at 102.8 and then went up to 103.4 �F. The patient was negative for flu in November and is also negative at this time.
Blood cultures are pending. Stool for Shiga toxin is negative. Stool for C. difficile is negative. Stool for Cryptosporidium and Giardia are negative. We are still awaiting stool for Salmonella and Campylobacter. Blood culture and urine culture
results are still pending as well. She is COVID-negative. Patient was started on Zosyn empirically after cultures were drawn. She was found to have a hyponatremia with a sodium of 121 and has been seen by nephrology. She also had a hypokalemia
and hypomagnesemia which are being repleted. Patient also had significant hypotension with her blood pressure in the 80s and was started on midodrine in addition to IV fluids. The patient never had a significantly elevated white count as this was
10.3 and following day was 8.9. However she did have significant bandemia of 21. Patient's sed rate is 87, CRP is 166.70, CT of the abdomen and pelvis with IV contrast shows nonspecific pancolitis, no bowel obstruction and a small hiatal hernia.
Impression:
1. Diarrhea
2. Fever/bandemia
3. Electrolyte imbalance (hypokalemia, hyponatremia, hypomagnesemia)
4. Elevated alk phos
5. Low TSH (0.13)
6. History of lymphocytic colitis currently on Visbiome
Suspect infectious colitis
Plan:
-Await stool for Salmonella and Shigella
-Continue IV fluid/electrolyte repletion
-Await pending urine and blood culture
-AP elevated, GGT normal, suspect not liver in etiology
-Monitor BM
-Trial of low residue, low fat, low lactose, no caffeine diet - bland foods
-Plan for possible cscope vs flex sig on Monday if not improving, reviewed with patient, agreeable
Total Time Spent with Patient (in minutes): 25
Subjective
Subjective
Date of Service: January 05, 2024
ongoing diarrhea 3-4 yesterday, 2 overnight, non bloody, pain after having BM as if she needs to have more BM, + chills.
Last fever 01/03
Objective
Data Reviewed
Laboratory Data:
Laboratory Results
01/05/24 05:45
01/05/24 05:45
Laboratory Results
Magnesium 1.9 mg/dl (1.6-2.3) 01/05/24 05:45
Total Bilirubin 1.0 mg/dl (0.2-1.3) 01/03/24 12:00
AST 20 U/L (14-36) 01/03/24 12:00
ALT < 10 U/L (0-35) 01/03/24 12:00
Alkaline Phosphatase 167 U/L (38-126) H 01/03/24 12:00
Vital Signs and I&O:
Vital Signs
Temp Pulse Resp BP Pulse Ox
98 F 71 18 97/68 99
01/05/24 11:58 01/05/24 10:00 01/05/24 10:00 01/05/24 10:00 01/05/24 10:00
I&O
01/04/24 01/05/24 01/06/24
06:59 06:59 06:59
Intake Total 950 / 950 1505 / 1505
Balance 950 / 950 1505 / 1505
Physical Exam
Physical Exam
GI: Non Distended and Non Tender
[2024-01-05] MEDS: UNASYN IV ×3 (12:37→23:50)
[2024-01-05] MEDS: NSS 1000 IV (13:40)
--- NOTE | 2024-01-05 14:13 | W.PN.UPDATE ---
Update Note
Progress Note Update
Recd message from nursing pt with pain and diarrhea with po intake will change diet to full liquids
--- NOTE | 2024-01-05 14:54 | CM ---
Chart reviewed and patient to return to home with spouse when stable.
Plan; Home with spouse when stable.
--- NOTE | 2024-01-05 15:06 | PN.CDI ---
CDI
- -
CDI:
Physician Documentation Request
Admit Date: 01/03/24 18:18
Dear Doctor Do,
Clinical Indicators:
Patient admitted with fever and diarrhea.
01/03 H & P, 'Hypotension IV fluids, midodrine as needed'
01/05 PN, 'Stage III CKD'
Cr/GFR trend:
01/03/24 01/04/24 01/04/24
12:00 04:19 05:45
Creatinine 1.2 H 1.0 0.8
eGFR 49.31 >60.00 > 60.00
Please clarify which of the following accurately represents the patient's renal status:
CONCHIS
CKD 3 with rise in creatinine only
Other, please specify
Criteria for CONCHIS*
1 Increase in serum creatinine by > or = to 0.3 mg/dL (> or = to 26.5 micromol/L) within 48 hours, OR
2 Increase in serum creatinine to > or = to 1.5 times baseline, which is known or presumed to have occurred within 7 days, OR
3 Urine volume < 0.5 nL/kg/hour for six hours
Stages of Chronic Kidney Disease*
Level Description GFR
G1 Normal or High >90
G2 Mildly decreased 60-89
G3a Mildly to moderately decreased 45-59
G3b Moderately to severely decreased 30-44
G4 Severely decreased 15-29
G5 Kidney failure <15
Use of terms such as suspected, likely, concern for, or probable (associated with a specific diagnosis that is being evaluated, monitored, or treated as if it exists) are acceptable and can be coded in the inpatient setting, when documented at the
time of discharge.
Thank you,
RADHA Rasmussen RN
CDI Specialist
available via tiger text
Please use your independent medical judgment in providing your response.
*Source: Kidney Disease: Improving Global Outcomes (KDIGO) 2012
[2024-01-05] MEDS: KCL 40 MEQ PO (16:39)
--- NOTE | 2024-01-05 17:06 | W.PN.NEPH.PH ---
Today's Communication / Plan
-
- Na stable at 132
- loosened fluid restriction
-neph to sign off
Assessment/Plan
-
Impression:
Hyponatremia: Euvolemic/Hypovolemic
Hypokalemia
Fevers/nausea/vomiting/diarrhea/failure to thrive
History of nephrolithiasis
History of obstructive sleep apnea
Plan:
Hyponatremia
-provided 3% saline at 30 cc/h for a total of 250 cc, and sodium up from 121 to 131, now stable at 132
-has hypovolemic hyponatremia, okay for 48-60oz of water daily. no need for tight restriction
-Follow-up serum uric acid level TSH, cortisol, urine osmolarity, urine sodium: Uric acid 7.8, TSH 0.13, cortisol 57, urine osmolality 141 (no consistent with SIADH),urine sodium 10
-I suspect the patient's hyponatremia is likely due more to volume depletion and excess water intake as opposed to underlying SIADH mediated process given urine osmolality of 140
-Follow-up free T4 (1.57 wnl)
-GI on board for diarrhea, if acidosis worsens, could give bicarb. ok to monitor for now
Nephrology will sign off. Please call back with further questions
-
-
Date of Service: January 05, 2024
CC / HPI / ROS
-
Chief Complaint:
Hyponatremia
History of Present Illness:
Hyponatremia improved from 121-131 with 250 cc of 3% saline, now increased to 132
Hemodynamically labile
Review of Systems:
Nonoliguric
No chest pain or shortness of breath
poor po intake
Labs
-
Labs:
WBC 12.2 10^3/uL (4.8-10.8) H 01/05/24 05:45
RBC 3.15 10^6/uL (4.20-5.40) L 01/05/24 05:45
Hgb 9.3 g/dL (12.0-16.0) L 01/05/24 05:45
Hct 27.1 % (37.0-47.0) L 01/05/24 05:45
Plt Count 453 10^3/uL (130-400) H 01/05/24 05:45
Sodium 132 mmol/L (135-145) L 01/05/24 05:45
Potassium 3.8 mmol/L (3.5-5.1) 01/05/24 05:45
Chloride 109 mmol/L (98-107) H 01/05/24 05:45
Carbon Dioxide 19 mmol/L (22-30) L 01/05/24 05:45
BUN 10 mg/dl (7-17) 01/05/24 05:45
Creatinine 0.8 mg/dL (0.6-1.0) 01/05/24 05:45
eGFR > 60.00 01/05/24 05:45
Glucose 91 mg/dl (70-99) 01/05/24 05:45
Calcium 7.2 mg/dl (8.4-10.2) L 01/05/24 05:45
Albumin 3.0 g/dl (3.5-5.0) L 01/03/24 12:00
Physical Exam
-
Vital Signs:
Vital Signs
Temp Pulse Resp BP Pulse Ox
98.3 F 80 20 103/73 100
01/05/24 15:35 01/05/24 14:00 01/05/24 14:00 01/05/24 14:00 01/05/24 14:00
Cardiovascular:: Regular rate and rhythm
Respiratory:: Bilateral: CTA
Lung Excursion:: Normal
Abdomen:: Distended, Nontender and Soft
Bowel Sounds:: Normal
Extremity Edema:: None: Bilateral:
Garza Catheter: No
[2024-01-05] MEDS: LOVENOX 40 MG SC (18:20)
[2024-01-05] MEDS: MELATONIN 5 MG PO (20:19)
[2024-01-06] VITALS (12 sets, daily range): BP systolic 99–118; BP diastolic 60–93
--- NOTE | 2024-01-06 05:23 | PTCARENOTE ---
Pt rested well overnight. Mild abdominal cramping. 3 watery light brown stools. Using bedside commode with min assist. VSS. Afebrile. SR on CM. No change from previous assessment. Call burton remains within reach. Will continue to monitor.
[2024-01-06] MEDS: UNASYN IV ×4 (05:35→23:42)
[2024-01-06 05:52] LABS: Hematocrit 26.2 % (37.0-47.0); Mean Corp Hgb Conc. 34.4 g/dL (33.0-37.0); Mean Corpuscular Hgb 29.8 pg (27.0-31.0); Mean Corpuscular Volume 86.8 fL (81.0-99.0); Mean Platelet Volume 8.2 fL (7.4-10.4); Platelet Count 405 10^3/uL (130-400); Red Blood Cell Count 3.02 10^6/uL (4.20-5.40); Red Cell Dist. Width 13.7 % (11.5-14.5); White Blood Cell Count 8.5 10^3/uL (4.8-10.8)
[2024-01-06 06:16] LABS: Blood Urea Nitrogen 7 mg/dl (7-17); Calcium 7.2 mg/dl (8.4-10.2); Carbon Dioxide 22 mmol/L (22-30); Chloride 105 mmol/L (98-107); Estimated Creatinine Clearance 65 ml/min; Glucose 83 mg/dl (70-99); Magnesium 1.7 mg/dl (1.6-2.3); Potassium 3.7 mmol/L (3.5-5.1); Sodium 135 mmol/L (135-145); eGFR > 60.00
[2024-01-06] MEDS: SODIUM BICARBONATE 1950 MG PO (08:22)
[2024-01-06] MEDS: VISBIOME 1 CAP PO (08:22)
[2024-01-06] MEDS: KCL PO ×2 (08:22→08:59)
--- NOTE | 2024-01-06 08:44 | W.PN.HOSP.TC ---
Today's Communication/Plan
-
see bold
Assessment / Plan
Assessment / Plan
HPI: 68-year-old female with a past medical history of collagenous colitis, hypertension and chronic loose stools presents with a 3-4-week history of nausea, vomiting, and loose stools.� Patient was admitted 12/16/2023 through 12/17/2023 for the same
symptoms and discharged.� She states that she continued to be nauseous after discharge, with profuse diarrhea.� States that this is different from her usual loose stools.� She follows with Dr. Herring.� She does have associated abdominal cramping with
her bowel movements.� No vomiting since her previous hospital admission.� She is febrile.� No dysuria, no shortness of breath.� Does have a dry cough.
#Fever
#Bandemia
#Diarrhea
CRP 166, ESR 87, procalcitonin 0.42
C. difficile negative, Cryptosporidium negative, stool cultures NTD, blood culture negative to date
CT abdomen and pelvis shows pancolitis
GI consulted, s/p Zosyn, continue Unasyn, may need flex sigmoidoscopy on Monday
Trial of BRAT diet as per GI
#Hypotension
Resolved s/p midodrine (last dose 01/04)
IV fluids, midodrine as needed
Maintain MAP greater than 65
#Hyponatremia
Cortisol normal, TSH low, free T4 normal
Appreciate nephrology input, sodium 135 today, was 132, was 131, status post hypertonic saline, was 121 upon admission
Continue management as per nephrology
#Non-anion gap metabolic acidosis
Due to diarrhea, resolved on oral sodium bicarb
#Acute kidney injury
Due to dehydration from diarrhea
Creatinine 0.6, was 0.8, was 1.2 upon admission
#Hypokalemia
Repleted and resolved
#Hypomagnesemia
Repleted and resolved
#Chronic normocytic anemia
Monitor hemoglobin
DVT prophylaxis�subcu Lovenox
Full code
Total time spent to see the patient on the floor, examine the patient, review data and lab results, discuss treatment plan with patient,� nursing staff� around 52 minutes.
Physical Exam
General: No acute distress
HEENT: Normocephalic, Atraumatic, EOMI, MMM
Respiratory: Clear to Auscultation bilaterally
Cardiac: Normal S1/S2, Regular Rate and Rhythm
GI: Soft, mild tenderness, Nondistended, Normal Bowel Sounds
Extremities: No Clubbing, Cyanosis, or Edema
Anticipated Discharge: > 48 hours
Subjective/Interval History
-
Date of Service: January 05, 2024
Patient continues to have diarrhea, nonbloody. Continues to have abdominal cramping with it. Fever resolved.
Objective Data
-
Labs:
Laboratory Results
01/05/24
05:45
WBC 12.2 H
Hgb 9.3 L
Hct 27.1 L
Plt Count 453 H
Sodium 132 L
Potassium 3.8
Chloride 109 H
Carbon Dioxide 19 L
BUN 10
Creatinine 0.8
Glucose 91
Calcium 7.2 L
Vital Signs:
Vital Signs
Temp Pulse Resp BP Pulse Ox
98.3 F 80 20 103/73 100
01/05/24 15:35 01/05/24 14:00 01/05/24 14:00 01/05/24 14:00 01/05/24 14:00
I&O
01/04/24 01/05/24 01/06/24
06:59 06:59 06:59
Intake Total 950 / 950 1505 / 1505
Balance 950 / 950 1505 / 1505
[2024-01-06] MEDS: KLOR-CON 20 MEQ PO ×2 (08:59→20:57)
--- NOTE | 2024-01-06 09:39 | W.PN.GI.CBS2 ---
Today's Communication / Plan
-
trial of diet, monitor bm, scope monday if not improving
Assessment / Plan
-
68-year-old female with past medical history of hypertension, collagenous colitis, C. difficile x 3, E. coli 0157: H7, obstructive sleep apnea presents to the emergency room with fevers, nausea, diarrhea, chills and fatigue. The patient had
similar symptoms 2 weeks prior and was admitted to observation for the same but responded to IV fluids for nausea vomiting and diarrhea. She did not have the fevers or chills at that time while in the hospital. The patient states that she did not
feel well a couple days later and then proceeded to have symptoms again. She was instructed to come to the emergency room because of these constellation symptoms. The patient states that she has had ongoing fevers, chills, myalgias and severe
fatigue. The patient has also had a dry cough for approximately 1 month. Upon arrival to the emergency room she was febrile at 102.8 and then went up to 103.4 �F. The patient was negative for flu in November and is also negative at this time.
Blood cultures are pending. Stool for Shiga toxin is negative. Stool for C. difficile is negative. Stool for Cryptosporidium and Giardia are negative. We are still awaiting stool for Salmonella and Campylobacter. Blood culture and urine culture
results are still pending as well. She is COVID-negative. Patient was started on Zosyn empirically after cultures were drawn. She was found to have a hyponatremia with a sodium of 121 and has been seen by nephrology. She also had a hypokalemia
and hypomagnesemia which are being repleted. Patient also had significant hypotension with her blood pressure in the 80s and was started on midodrine in addition to IV fluids. The patient never had a significantly elevated white count as this was
10.3 and following day was 8.9. However she did have significant bandemia of 21. Patient's sed rate is 87, CRP is 166.70, CT of the abdomen and pelvis with IV contrast shows nonspecific pancolitis, no bowel obstruction and a small hiatal hernia.
Impression:
1. Diarrhea
2. Fever/bandemia
3. Electrolyte imbalance (hypokalemia, hyponatremia, hypomagnesemia)
4. Elevated alk phos
5. Low TSH (0.13)
6. History of lymphocytic colitis currently on Visbiome
Suspect infectious colitis
Plan:
-Stools negative
-Continue IV fluid/electrolyte repletion
-Monitor BM
-Trial of BRAT diet today if does well with lunch will advance to low residue for dinner
-Plan for possible cscope vs flex sig on Monday if not improving, reviewed with patient, agreeable - will put on clear tomorrow pre-emptively if not improving
Subjective
Subjective
Date of Service: January 06, 2024
5 BM/day, one at night, one this am
Yesterday had more abd pain today feels better
Feels some soreness and bloating
Objective
Data Reviewed
Laboratory Data:
Laboratory Results
01/06/24 05:28
01/06/24 05:28
Laboratory Results
Magnesium 1.7 mg/dl (1.6-2.3) 01/06/24 05:28
Total Bilirubin 1.0 mg/dl (0.2-1.3) 01/03/24 12:00
AST 20 U/L (14-36) 01/03/24 12:00
ALT < 10 U/L (0-35) 01/03/24 12:00
Alkaline Phosphatase 167 U/L (38-126) H 01/03/24 12:00
Vital Signs and I&O:
Vital Signs
Temp Pulse Resp BP Pulse Ox
98.2 F 74 21 105/69 98
01/06/24 07:25 01/06/24 06:00 01/06/24 06:00 01/06/24 06:00 01/06/24 09:13
I&O
01/05/24 01/06/24 01/07/24
06:59 06:59 06:59
Intake Total 1505 / 1505 540 / 540
Balance 1505 / 1505 540 / 540
Physical Exam
Physical Exam
GI: Non Distended and Non Tender
--- NOTE | 2024-01-06 16:28 | PTCARENOTE ---
Diet advanced to Low Res; Several watery BM's on shift; Pt denied pain/discomfort following meals; SpO2 ~ 98% on RA; BP stable, HR ~ 80-90's; Will continue to monitor and assess.
[2024-01-06] MEDS: SODIUM BICARBONATE 650 MG PO ×2 (17:36→20:56)
[2024-01-06] MEDS: LOVENOX 40 MG SC (17:37)
[2024-01-06] MEDS: MELATONIN 5 MG PO (20:56)
[2024-01-06] MEDS: TYLENOL 650 MG PO (20:59)
[2024-01-07] VITALS (7 sets, daily range): BP systolic 109–143; BP diastolic 65–84
--- NOTE | 2024-01-07 00:39 | PTCARENOTE ---
Pt received at beginning of shift resting in bed. Denies any abdominal discomfort. Able to tolerate meals today per pt. Pt informed her diet to change in am to clears for potential cscope on Monday. Continues to have watery stools using BSC. Unable
to determine amount since pt voiding as well. Admitted to headache received Tylenol with good relief. VSS. Afebrile. SR/PVC's on CM. No change from previous assessment. Call burton at bedside. Will continue to monitor.
[2024-01-07 05:19] LABS: Hematocrit 27.4 % (37.0-47.0); Hemoglobin 9.2 g/dL (12.0-16.0); Mean Corp Hgb Conc. 33.6 g/dL (33.0-37.0); Mean Corpuscular Volume 86.4 fL (81.0-99.0); Mean Platelet Volume 8.2 fL (7.4-10.4); Platelet Count 398 10^3/uL (130-400); Red Blood Cell Count 3.17 10^6/uL (4.20-5.40); Red Cell Dist. Width 14.1 % (11.5-14.5); White Blood Cell Count 8.9 10^3/uL (4.8-10.8)
[2024-01-07] MEDS: UNASYN IV ×2 (05:22→12:28)
[2024-01-07 05:42] LABS: Blood Urea Nitrogen 5 mg/dl (7-17); Calcium 7.4 mg/dl (8.4-10.2); Carbon Dioxide 23 mmol/L (22-30); Chloride 103 mmol/L (98-107); Estimated Creatinine Clearance 65 ml/min; Glucose 84 mg/dl (70-99); Magnesium 1.7 mg/dl (1.6-2.3); Phosphorus 2.4 mg/dl (2.5-4.5); Potassium 4.1 mmol/L (3.5-5.1); Sodium 134 mmol/L (135-145); eGFR > 60.00
[2024-01-07] MEDS: KLOR-CON 20 MEQ PO (08:21)
[2024-01-07] MEDS: VISBIOME 1 CAP PO (08:21)
[2024-01-07] MEDS: SODIUM BICARBONATE 650 MG PO (08:21)
--- NOTE | 2024-01-07 08:50 | W.PN.HOSP.TC ---
Today's Communication/Plan
-
discharge today
Assessment / Plan
Assessment / Plan
HPI: 68-year-old female with a past medical history of collagenous colitis, hypertension and chronic loose stools presents with a 3-4-week history of nausea, vomiting, and loose stools.� Patient was admitted 12/16/2023 through 12/17/2023 for the same
symptoms and discharged.� She states that she continued to be nauseous after discharge, with profuse diarrhea.� States that this is different from her usual loose stools.� She follows with Dr. Herring.� She does have associated abdominal cramping with
her bowel movements.� No vomiting since her previous hospital admission.� She is febrile.� No dysuria, no shortness of breath.� Does have a dry cough.
#Sepsis secondary to infectious colitis
#Fever
#Bandemia
#Diarrhea
CRP 166, ESR 87, procalcitonin 0.42
C. difficile negative, Cryptosporidium negative, stool cultures NTD, blood culture negative to date
CT abdomen and pelvis shows pancolitis
GI consulted, s/p Zosyn, continue Unasyn
Patient has improved dramatically, sepsis resolving
Cleared by GI for discharge on Augmentin for 4 more days to complete a 7-day course
Follow-up with your usual GI doctor�Dr. Herring in the office
#Hypotension
Resolved s/p midodrine (last dose 01/04)
# Hypovolemic hyponatremia
Cortisol normal, TSH low, free T4 normal
Appreciate nephrology input, sodium 134 today, was 135, was 132, was 131, status post hypertonic saline, was 121 upon admission
Continue management as per nephrology
#Non-anion gap metabolic acidosis
Due to diarrhea, resolved on oral sodium bicarb
#Acute kidney injury
Due to dehydration from diarrhea
Creatinine 0.6, was 0.8, was 1.2 upon admission
#Hypokalemia
Repleted and resolved
#Hypomagnesemia
Repleted and resolved
#Chronic normocytic anemia
Monitor hemoglobin
DVT prophylaxis�subcu Lovenox
Full code
Physical Exam
General: No acute distress
HEENT: Normocephalic, Atraumatic, EOMI, MMM
Respiratory: Clear to Auscultation bilaterally
Cardiac: Normal S1/S2, Regular Rate and Rhythm
GI: Soft, mild tenderness, Nondistended, Normal Bowel Sounds
Extremities: No Clubbing, Cyanosis, or Edema
Anticipated Discharge: Today
Subjective/Interval History
-
Date of Service: January 07, 2024
Patient had solids this morning, without any abdominal pain. Her diarrhea resolved. Stools are the normal loose consistency. No fever.
Objective Data
-
Labs:
Laboratory Results
01/07/24
04:41
WBC 8.9
Hgb 9.2 L
Hct 27.4 L
Plt Count 398
Sodium 134 L
Potassium 4.1
Chloride 103
Carbon Dioxide 23
BUN 5 L
Creatinine 0.6
Glucose 84
Calcium 7.4 L
Vital Signs:
Vital Signs
Temp Pulse Resp BP Pulse Ox
98.2 F 92 14 131/84 100
01/07/24 08:37 01/07/24 06:00 01/07/24 06:00 01/07/24 06:00 01/07/24 06:00
I&O
01/06/24 01/07/24 01/08/24
06:59 06:59 06:59
Intake Total 540 / 540 540 / 540
Balance 540 / 540 540 / 540
--- NOTE | 2024-01-07 08:51 | W.PN.GI.CBS2 ---
Today's Communication / Plan
-
discharge, outpatient GI follow up, antibiotics
Assessment / Plan
-
68-year-old female with past medical history of hypertension, collagenous colitis, C. difficile x 3, E. coli 0157: H7, obstructive sleep apnea presents to the emergency room with fevers, nausea, diarrhea, chills and fatigue. The patient had
similar symptoms 2 weeks prior and was admitted to observation for the same but responded to IV fluids for nausea vomiting and diarrhea. She did not have the fevers or chills at that time while in the hospital. The patient states that she did not
feel well a couple days later and then proceeded to have symptoms again. She was instructed to come to the emergency room because of these constellation symptoms. The patient states that she has had ongoing fevers, chills, myalgias and severe
fatigue. The patient has also had a dry cough for approximately 1 month. Upon arrival to the emergency room she was febrile at 102.8 and then went up to 103.4 �F. The patient was negative for flu in November and is also negative at this time.
Blood cultures are pending. Stool for Shiga toxin is negative. Stool for C. difficile is negative. Stool for Cryptosporidium and Giardia are negative. We are still awaiting stool for Salmonella and Campylobacter. Blood culture and urine culture
results are still pending as well. She is COVID-negative. Patient was started on Zosyn empirically after cultures were drawn. She was found to have a hyponatremia with a sodium of 121 and has been seen by nephrology. She also had a hypokalemia
and hypomagnesemia which are being repleted. Patient also had significant hypotension with her blood pressure in the 80s and was started on midodrine in addition to IV fluids. The patient never had a significantly elevated white count as this was
10.3 and following day was 8.9. However she did have significant bandemia of 21. Patient's sed rate is 87, CRP is 166.70, CT of the abdomen and pelvis with IV contrast shows nonspecific pancolitis, no bowel obstruction and a small hiatal hernia.
Impression:
1. Diarrhea
2. Fever/bandemia
3. Electrolyte imbalance (hypokalemia, hyponatremia, hypomagnesemia)
4. Elevated alk phos
5. Low TSH (0.13)
6. History of lymphocytic colitis currently on Visbiome
Suspect infectious colitis given fever, bandemia
Plan:
-Stools negative
-Plan discharge today, symptomatically much improved
-D/w Dr. Foy recommend total of 7 days of antibiotics given severity of her presentation
-I sent a message to our office to arrange a follow up appt with Dr. Herring in 4 weeks and instructed pt to call our office if she does not hear in a week
GI will sign off pls call with ?s
Subjective
Subjective
Date of Service: January 07, 2024
Feels much improved. Semi formed stool today, no pain. Tolerated diet last pm.
Objective
Data Reviewed
Laboratory Data:
Laboratory Results
01/07/24 04:41
01/07/24 04:41
Laboratory Results
Phosphorus 2.4 mg/dl (2.5-4.5) L 01/07/24 04:41
Magnesium 1.7 mg/dl (1.6-2.3) 01/07/24 04:41
Total Bilirubin 1.0 mg/dl (0.2-1.3) 01/03/24 12:00
AST 20 U/L (14-36) 01/03/24 12:00
ALT < 10 U/L (0-35) 01/03/24 12:00
Alkaline Phosphatase 167 U/L (38-126) H 01/03/24 12:00
Vital Signs and I&O:
Vital Signs
Temp Pulse Resp BP Pulse Ox
98.2 F 92 14 131/84 100
01/07/24 08:37 01/07/24 06:00 01/07/24 06:00 01/07/24 06:00 01/07/24 06:00
I&O
01/06/24 01/07/24 01/08/24
06:59 06:59 06:59
Intake Total 540 / 540 540 / 540
Balance 540 / 540 540 / 540
Physical Exam
Physical Exam
GI: Non Distended and Non Tender
[2024-01-07] MEDS: NEUTRA-PHOS POWDER PACKET 250 MG PO ×2 (09:25→12:32)
--- NOTE | 2024-01-07 11:05 | W.DCSUMMARY ---
Discharge Summary
Discharge Data
Date of Admission: 01/03/24
Date of Discharge: 01/07/24
-
Pending Results: No
Hospital Course
Discharge diagnosis:
Sepsis
Infectious colitis
Bandemia
Fever
Diarrhea
Hypotension
Hypovolemic hyponatremia
Hypokalemia
Hypomagnesemia
Hypophosphatemia
Non-anion gap metabolic acidosis
Acute kidney injury
Chronic normocytic anemia
Consults: GI, nephrology
CT abd/pelvis:
Nonspecific pancolitis.
No bowel obstruction.
Small hiatal hernia.
Hospital course:
68-year-old female with a past medical history of collagenous colitis, C. difficile diarrhea, E. coli diarrhea, and hypertension presents with a 3-week history of diarrhea, abdominal pain, and fever. CT of the abdomen and pelvis shows nonspecific
pancolitis. She was febrile, with a bandemia.
Patient was treated with IV Zosyn, and then transitioned to Unasyn. She was seen in conjunction with GI. Stool studies were negative. GI states that although stool studies were negative, she likely has infectious colitis.
Patient was also found to have a sodium of 121 upon admission. She was seen in conjunction with nephrology, who suspect she has hypovolemic hyponatremia. She received hypertonic saline, IV fluids. TSH was low, free T4 normal. Cortisol normal.
Patient's sodium improved to 134 on the day of discharge.
Patient had acute kidney injury, which resolved with IV fluids. She also had hypokalemia and hypomagnesemia. She received IV and p.o. repletion, and her potassium and magnesium normalized.
After several days, patient did tolerate solids. Her abdominal pain resolved. Her fever resolved. She is medically stable and cleared by GI for discharge on Augmentin to complete 7 days of antibiotics. She has been instructed to follow-up with
her usual GI doctor, Dr. Herring, in the office in 2 weeks, as well as her PCP in 1 week. She needs a repeat BMP and magnesium level with her PCP in 1 week.
Disposition: Home self-care
Discharge planning: Required 38 minutes
Discharge Plan
-
Patient Disposition: Home (Routine Discharge)
Discharge Diagnosis/Procedures: Infectious colitis, sepsis, hypotension, hyponatremia, dehydration, acute kidney injury, hypokalemia, hypomagnesemia, chronic anemia
Condition: Good
Diet: Low Residue
Activity: As tolerated
Driving Restrictions: As prior to admission
Blood Work: BMP, magnesium level, phosphorus level with your primary care provider in 1 week
Activity Restrictions/Additional Instructions:
Rest, drink plenty of fluids, especially things with electrolytes such as Gatorade and Powerade.
Please follow-up with your usual GI doctor in the office in 2 weeks, your primary care doctor in 1 week.
You can follow-up with nephrology as needed.
Referrals:
Yunior Herring MD [Active] - in two weeks
Megha Squires MD [Active] -
Lesli Gann CRNP [Family Provider] - in one week
Prescriptions:
New
potassium chloride [Klor-Con] 20 mEq Packet
20 meq PO .every other day 6 Days Qty: 3 0RF
ciprofloxacin HCl 500 mg tablet
500 mg PO BID 4 Days Qty: 8 0RF
metronidazole 500 mg tablet
500 mg PO TID 4 Days Qty: 12 0RF
Continued
therapeutic multivitamin Tablet
1 tab PO DAILY
guaifenesin 600 mg Tablet Extended Release 12hr
600 mg PO BIDPRN PRN (Reason: cough)
Visbiome 112.5 billion cell Capsule
1 cap PO DAILY Qty: 0 0RF
ondansetron HCl 4 mg tablet
4 mg PO Q6HPRN PRN (Reason: nausea/vomiting)
Discharge Orders:
Discharge Patient (As Directed); Ordered 01/07/24
Ordered By: Marco Foy
Discharge Date and Time
Discharge Date/Time: 01/07/24 16:04
--- NOTE | 2024-01-07 14:20 | PTCARENOTE ---
Last dose of Unasyn given; Discharge and medications reviewed. Float nurse assisted with getting ready for D/C. Pts arrived for transport - Pt assisted in w/c to exit - discharged home.
== END 2024-01-07 16:04 | disposition home or self-care (01) | DRG 872 ==
LOC: IMU 18:18
PROVIDERS: Emergency Medicine; Nurse Practitioner; ADMITTING PHYSICIAN Family Medicine; CONSULT PHYSICIAN Internal Medicine Gastroenterology; CONSULT PHYSICIAN Specialist; EMERGENCY PHYSICIAN Emergency Medicine; FAMILY PHYSICIAN Nurse Practitioner
DX: A41.9 Sepsis, unspecified organism (principal); A07.2 Cryptosporidiosis; E87.1 Hypo-osmolality and hyponatremia; E87.20 Acidosis, unspecified; A04.4 Other intestinal Escherichia coli infections; A04.72 Enterocolitis due to Clostridium difficile, not specified as recurrent; N17.9 Acute kidney failure, unspecified; Z11.52 Encounter for screening for COVID-19; I95.9 Hypotension, unspecified; E87.6 Hypokalemia; E83.42 Hypomagnesemia; N18.30 Chronic kidney disease, stage 3 unspecified; I12.9 Hypertensive chronic kidney disease with stage 1 through stage 4 chronic kidney disease, or unspecified chronic kidney disease; D64.9 Anemia, unspecified; R62.7 Adult failure to thrive; Z68.24 Body mass index [BMI] 24.0-24.9, adult
CPT/HCPCS: 71046; 74177; 80048; 80053; 81003; 81015; 82533; 82977; 83605; 83735; 83930; 83935; 84100; 84145; 84300; 84439; 84443; 84550; 85025; 85027; 85652; 86140; 87040; 87045; 87046; 87086; 87324; 87328; 87329; 87427; 87449; 87502; 87811; 96361; 96365; 96366; 96375; 99291; Q9967

== ENCOUNTER → 2024-01-10 10:50 | Outpatient (REF) | payer OTHER, SELFPAY | LOC: HWRAD 10:50 | PROVIDERS: ATTENDING PHYSICIAN Nurse Practitioner | DX: R60.0 Localized edema (principal) | CPT/HCPCS: 71046 ==

== ENCOUNTER 2024-01-18 17:34 | Emergency (ER) | payer OTHER, SELFPAY ==
[2024-01-18 17:36] VITALS: BP 162/87
--- NOTE | 2024-01-18 18:20 | ED.GENMED ---
History of Present Illness
General
Chief Complaint: Swelling
Source: patient
Exam Limitations: other
Time Seen by Provider: 01/18/24 18:06
Travel History
Have you had any contact with someone who has COVID-19?: No
Do you have any symptoms of coronavirus? Fever > 100 degrees, chills, cough, shortness of breath, sore throat, loss of taste or smell, muscle aches, or headache?: No
History of Present Illness
History of Present Illness:
This is a 68 year old female that comes in with c/o lower leg swelling and redness. States that she was in the hospital 5 days and discharged on Jan 07. States that she was here with sepsis, Hyponatremia and other issues. State that she noticed
that her legs were a little swollen before she left and then by mid week this had increased. States that she went to see the PCP on Monday. States that they did an ECG and she is set up for a ECHO on January 25. States that they had continued to get
worse. States that she is eating and there is no nausea. States that she does have a headache. Denies any fever, chills, chest pain, SOB, abd pain, nausea, vomiting, diarrhea, dizziness, Urinary burning.
Past History
Past History
ED Past Medical History: HTN and Other (kidney stones, menieire's, mac degen, STANFORD, Sleep apnea, Colitis, )
ED Past Surgical History: Cholecystectomy, (X 2), Orthopedic (Carpal tunnel), Urological (multiple cystos) and Other (ventral hernia. )
Social History
Tobacco: Non-smoker
Alcohol: None
Drug: None
Personal:
Living: with family
Employment: Employed
Family History
Family History: CAD
Review of Systems
Review of Systems
All Other Systems: ROS reviewed and negative except as documented in HPI and ROS
Constitutional: Reports no symptoms; Denies fever or chills
EENT: Reports no symptoms
Respiratory: Denies no symptoms, cough or trouble breathing
Cardiac: Reports chest pain; Denies no symptoms
ABD/GI: Reports no symptoms; Denies abdominal pain, nausea, vomiting or diarrhea
: Reports no symptoms; Denies dysuria, frequency or urgency
Musculoskeletal: Reports edema (Bilateral lower legs)
Skin: Reports other (Redness both legs)
Neurological: Reports headache; Denies dizzy
Psychiatric: Reports no symptoms
Phy Exam
General Physical Exam
General Presentation: no apparent distress
General age: appears stated age
General Skin: warm and dry
General Habitus: elderly
General Mental: alert
General Hydration: appears well hydrated
ENT Exam
ENT Exam: TM's normal, pharynx normal and neck supple
Eye Exam
Eye Exam: EOMI
Cardiovascular Exam
Cardiovascular Exam: regular rate/rhythm and normal peripheral pulses
Pulmonary Exam
Pulmonary Exam: lungs clear, no respiratory distress, no rales, chest non tender, no crackles, no rhonchi, no wheezing and no cough
Gastrointestinal Exam
Gastrointestinal Exam: normal bowel sounds, non tender, soft, no organomegaly, no pulsatile mass and non distended
Musculoskeletal Exam
Musculoskeletal Exam: full ROM and edema (Bilateral lower leg edema +1 pitting to knee's)
Skin Exam
Skin Exam: normal color, warm/dry, no petechia and other (appears to have dry skin with streaks of redness. )
Psychiatric Exam
Psychiatric Exam: normal mood/affect
Scores
Heart Failure Risk
Heart Failure Risk Score: Not Applicable
Course
Orders/Labs/Results
Orders:
Orders
01/18/24 18:19
US Legs, Bilateral [US Periph Venous LOWER Ext Gonzalez] Urgent
Comment:
Reason For Exam: Lower leg swelling
01/18/24 18:31
Electrocardiogram (*1) Urgent
Reason for Study: Other
Other Reason for Exam: Bilateral edema
EKG- Treatment ONCE
01/18/24 18:36
Complete Blood Count/With Diff Urgent
Comprehensive Metabolic Panel Urgent
Lactic Acid Urgent
NT-proBNP Urgent
Troponin I Urgent
01/18/24 19:52
Furosemide [Lasix] 20 mg IV NOW STA
Abnormal Lab Results
01/18/24
18:36
RBC 3.00 L 10^6/uL
(4.20-5.40)
Hgb 8.9 L g/dL
(12.0-16.0)
Hct 28.1 L %
(37.0-47.0)
MCHC 31.7 L g/dL
(33.0-37.0)
RDW 17.6 H %
(11.5-14.5)
Plt Count 463 H 10^3/uL
(130-400)
Abs Immat Gran (auto) 0.1 H 10^3/uL
(0-0.05)
Immature Gran % 0.9 H %
(0-0.5)
Calcium 8.2 L mg/dl
(8.4-10.2)
Total Protein 5.9 L g/dl
(6.3-8.2)
Albumin 2.9 L g/dl
(3.5-5.0)
01/18/24 18:36
01/18/24 18:36
h/h LOW but consistent with prior labs. Plt slightly elevated. Calcium slightly low. Total Protein slightly low. Albumin low. Troponin <0.012, Pro-BNP 972, Lactic acid 1.5
Vital Signs
Initial and Last Documented VS:
Initial Vital Signs
Temp Pulse Resp BP Pulse Ox
98.9 F 88 18 162/87 98
01/18/24 17:36 01/18/24 17:36 01/18/24 17:36 01/18/24 17:36 01/18/24 17:36
Last Documented Vital Signs
Temp Pulse Resp BP Pulse Ox
98.9 F 88 18 162/87 98
01/18/24 17:36 01/18/24 17:36 01/18/24 17:36 01/18/24 17:36 01/18/24 17:36
MDM/Problems Addressed
Differential Diagnosis Includes:
Dry skin, Bilateral leg edema
MDM/Problems Addressed:
This is a 68 year old female that comes in with c/o bilateral leg swelling and these red streaks on the lower legs. States that the swelling started just a little when she was here in the hospital. Then it continued when she was at home. Patient
called the PCP and they did en ECG and she is scheduled for an ECHO on January 25. States that the swelling continued to get worse
Will get labs, US bilateral leg.
Back into see patient and family. Explained that the US is negative for any blood clots. Her blood work shows her Hgb is a little low, her lactic acid is normal along with the Troponin and her PRo-BNP is low. Explained that this is most likely
depended Edema. Patient has an appointment for ECHO and also an appointment for the [facility]. Explained that if they feel that she needs to be on Lasix daily they will make that decision. Will give patient Knee high TEDs here and one dose of
Lasix here. Encouraged patient to elevated her legs when sitting around and follow up as scheduled. Encouraged patient to also use Lotion to the legs as the skin is very dry. Patient to return with any concerns.
Chronic conditions affecting care:
NA
Acute Exacerbation and/or Progression of Chronic Illness:
NA
*Radiology
Radiology exam reviewed: radiology read reviewed (US-No sonographic evidence for lower extremity venous thrombosis. )
*Pulse Oximetry
Patient hypoxic: no
*Critical Care Note
Total Time (30-74mins, 75-104mins- exclusive of procedures): Not Applicable
ED Attending Note
-
Portions of this chart may have been created with voice recognition software.� Occasional wrong word or��sound alike� substitutions may have occurred due to the inherent limitations of voice recognition software.
Discharge Plan
Departure
Patient Disposition: Home (Routine Discharge)
Date of Disposition: 01/18/24
Time of Disposition: 20:02
Patient with high blood pressure during this ER visit?: Yes
Condition: Good
Covid-19: Not Applicable
Discharge Problem:
Dependent edema
Instructions: Dependent Edema (DC), BLOOD PRESSURE
Prescriptions:
No Action
therapeutic multivitamin Tablet
1 tab PO DAILY
acetaminophen [Tylenol] 325 mg Tablet
650 mg PO Q4H PRN (Reason: mild pain)
calcium carbonate [Calcium 500] 500 mg calcium (1,250 mg) Tablet
500 mg PO DAILY
magnesium oxide 500 mg magnesium Tablet
500 mg PO DAILY
Visbiome 112.5 billion cell capsule
2 cap PO DAILY
Referrals:
Lesli Gann CRNP [Family Provider] - Follow up in 2-3 days
Activity Restrictions/Additional Instructions:
As discussed, your blood work shows that your Hgb is a little low. Your Troponin is normal along with your lactic acid. Your US is negative for any blood clots. You have been given knee high TEDs. Please wear them when you are up walking around as
they will help push the fluid back into the system. You have been given once dose of IV Lasix here to help decrease some of the edema. Please elevate your legs when sitting around. Watch your sodium intake and limit your water intake to 6-8oz
glasses daily of water as not to wash out your sodium. Follow up with the [facility] and the [facility] after your ECHO as directed. Please use some lotion on the lower legs to help with this dry skin. IF YOU HAVE ANY OTHER CONCERNS PLEASE
RETURN TO THE EMERGENCY ROOM.
Interventions
Interventions:
*Risk Screen - Suicide Last Done: 01/18/24 17:36
*General Assessment Last Done: 01/18/24 17:36
*Neglect/Abuse Screening Last Done: 01/18/24 17:36
*ED COVID-19 Vaccine History Last Done: 01/18/24 17:36
ED- Cardiac Assessment Last Done: 01/18/24 19:04
ED- Pulmonary Assessment Last Done: 01/18/24 19:04
ED-Skin Assessment Last Done: 01/18/24 19:04
[2024-01-18 18:47] LABS: % Basophils 1.1 % (0-2); % Immature Granulocytes 0.9 % (0-0.5); % Lymphocytes 25.3 % (20.5-51.1); % Monocytes 5.7 % (1.7-9.3); Absolute Basophils 0.1 10^3/uL (0-0.2); Absolute Eosinophils 0.2 10^3/uL (0-0.7); Absolute Immature Granulocytes 0.1 10^3/uL (0-0.05); Absolute Lymphocytes 1.9 10^3/uL (1.2-3.4); Absolute Monocytes 0.4 10^3/uL (0.1-0.6); Absolute Neutrophils 4.9 10^3/uL (1.4-6.5); Hematocrit 28.1 % (37.0-47.0); Hemoglobin 8.9 g/dL (12.0-16.0); Mean Corp Hgb Conc. 31.7 g/dL (33.0-37.0); Mean Corpuscular Hgb 29.7 pg (27.0-31.0); Mean Corpuscular Volume 93.7 fL (81.0-99.0); Mean Platelet Volume 8.3 fL (7.4-10.4); Nucleated Red Blood Cells % 0 %; Platelet Count 463 10^3/uL (130-400); Red Cell Dist. Width 17.6 % (11.5-14.5); White Blood Cell Count 7.5 10^3/uL (4.8-10.8)
[2024-01-18 18:56] LABS: Lactic Acid 1.5 mmol/L (0.7-2.0)
[2024-01-18 19:06] LABS: ALT (SGPT) < 10 U/L (0-35); AST (SGOT) 26 U/L (14-36); Albumin 2.9 g/dl (3.5-5.0); Alkaline Phosphatase 117 U/L (38-126); Blood Urea Nitrogen 14 mg/dl (7-17); Calcium 8.2 mg/dl (8.4-10.2); Carbon Dioxide 30 mmol/L (22-30); Chloride 103 mmol/L (98-107); Glucose 93 mg/dl (70-99); Potassium 4.4 mmol/L (3.5-5.1); Sodium 135 mmol/L (135-145); Total Bilirubin 0.7 mg/dl (0.2-1.3); Total Protein 5.9 g/dl (6.3-8.2); eGFR > 60.00
[2024-01-18 19:09] LABS: NT-proBNP 972 pg/ml; Troponin I < 0.012 ng/ml
[2024-01-18] MEDS: LASIX 20 MG IV (20:06)
[2024-01-18 20:07] VITALS: BP 128/60
== END 2024-01-18 20:28 | disposition home or self-care (01) ==
LOC: EMR 17:34
PROVIDERS: Clinical Nurse Specialist Family Health; EMERGENCY PHYSICIAN Emergency Medicine; FAMILY PHYSICIAN Nurse Practitioner
DX: R60.9 Edema, unspecified (principal); I10 Essential (primary) hypertension
CPT/HCPCS: 99284; 96374; 80053; 83605; 83880; 84484; 85025; 93970

== ENCOUNTER → 2024-01-26 10:49 | Outpatient (REF) | payer OTHER, SELFPAY | LOC: HWRCS 10:49 | PROVIDERS: ATTENDING PHYSICIAN Nurse Practitioner | DX: R60.0 Localized edema (principal) | CPT/HCPCS: 93306 ==

== ENCOUNTER → 2024-04-19 08:46 | Outpatient (REF) | payer OTHER, SELFPAY | LOC: HWRAD 08:46 | PROVIDERS: ATTENDING PHYSICIAN Nurse Practitioner | DX: M25.531 Pain in right wrist (principal); M25.532 Pain in left wrist | CPT/HCPCS: 73110 ==

== ENCOUNTER → 2024-07-24 09:57 | Outpatient (REF) | payer OTHER, SELFPAY | LOC: HWWDC 09:57 | PROVIDERS: ATTENDING PHYSICIAN Nurse Practitioner | DX: Z12.31 Encounter for screening mammogram for malignant neoplasm of breast (principal) | CPT/HCPCS: 77063; 77067 ==

== ENCOUNTER 2024-11-01 19:03 | Emergency (ER) | payer OTHER, SELFPAY ==
[2024-11-01 19:05] VITALS: BP 162/96
--- NOTE | 2024-11-01 19:05 | ED.GENMED ---
ED Provider Triage
<Jessica Oleary PA-C - Last Filed: 11/01/24 21:05>
-
Patient seen by provider in Triage?: Seen in Triage
Attestation: A medical screening examination has been initiated by a qualified medical provider. Based on the assessment performed at this time, it has been determined that an emergent medical condition may exist and the patient has been informed
that further medical evaluation and possible additional diagnostic testing may be needed.
HPI: 69yoF here with R flank pain x 4 days. Also having worsening diarrhea. Urinating less than normal today.
GENERAL: Alert , in no apparent distress
EYE: No visual abnormalities.
NECK: Trachea midline
ENT: No visible abnormalities.
LUNGS: No acute respiratory distress
NEUROLOGICAL: Alert and oriented
SKIN: Skin intact. No visible changes.
MUSCULOSKELETAL: Moving extremities normally
PSYCH: Normal and appropriate interaction.
This is a medical evaluation conducted in person to initiate diagnostic evaluation and provide initial therapeutics. Please see further documentation by the treating clinician.
HR 130s in triage. Abdominal labs, magnesium, UA, EKG, and CT abdomen ordered.
History of Present Illness
<Jessica Oleary PA-C - Last Filed: 11/01/24 21:05>
General
Chief Complaint: Urinary Symptoms
Time Seen by Provider: 11/01/24 19:59
<Ferny Foy DO - Last Filed: 11/01/24 23:02>
General
Source: patient
Exam Limitations: none
Nursing documentation reviewed up to this point in time: agreed with
History of Present Illness
History of Present Illness:
69-year-old female right flank pain onset a few days ago history of kidney stone unsure if this is the same pain, no nausea or vomiting no dysuria frequency no hematuria, no heavy lifting chest feels dizzy her blood pressure meds have been adjusted
recently she has had acute kidney injury she has had hyponatremia under the care of a access analyst her lisinopril was recently decreased, no chest pain or shortness of breath
Past History
<Jessica Oleary PA-C - Last Filed: 11/01/24 21:05>
Past History
ED Past Medical History: HTN and Other (kidney stones, menieire's, mac degen, ST[place]ORD, Sleep apnea, Colitis, )
ED Past Surgical History: Cholecystectomy, (X 2), Orthopedic (Carpal tunnel), Urological (multiple cystos) and Other (ventral hernia. )
Social History
Tobacco: Non-smoker
Alcohol: None
Drug: None
Personal:
Living: with family
Employment: Employed
Family History
Family History: CAD
Review of Systems
<Ferny Foy, - Last Filed: 11/01/24 23:02>
Review of Systems
All Other Systems: Not applicable
Constitutional: Reports fever; Denies fatigue
EENT: Reports no symptoms
Respiratory: Reports no symptoms; Denies cough or trouble breathing
Cardiac: Denies chest pain or palpitations
ABD/GI: Denies abdominal pain or nausea
: Reports flank pain; Denies dysuria, incontinence, difficulty voiding, bleeding or dark urine
Musculoskeletal: Reports back pain
Skin: Reports no symptoms
Neurological: Reports dizzy and weakness
Endocrine: Reports no symptoms
Phy Exam
<Ferny Foy DO - Last Filed: 11/01/24 23:02>
Physical Exam
Physical Exam:
Physical Exam
General: no apparent distress, not acutely ill
Neck: No jaundice
Heart: Regular
Lungs: no acute respiratory distress. clear bilaterally
Abdomen: Soft mild right CVA tender
Neuro: alert and oriented. no focal neurological deficits
Skin: no rash
Psychiatric: well kept. interactive and cooperative
Extremities: no edema. no calf tenderness.
Course
<Jessica Oleary PA-C - Last Filed: 11/01/24 21:05>
Orders/Labs/Results
Orders:
Orders
11/01/24 19:07
Electrocardiogram (*1) Urgent
Reason for Study: Other
Other Reason for Exam: tachycardia
EKG- Treatment ONCE
11/01/24 19:10
CT Abd/pel Without Iv Or Oral Urgent
Comment:
Reason For Exam: R flank pain
11/01/24 19:18
Complete Blood Count/With Diff Urgent
Comprehensive Metabolic Panel Urgent
Lipase Urgent
Magnesium Urgent
11/01/24 20:24
Ibuprofen [Motrin] 600 mg PO NOW STA
11/01/24 21:26
Urinalysis Reflex To Culture Urgent
Date Specimen was Collected: 11/01/24
Time Specimen was Collected: 20:52
Urine Microscopic Reflex Cult Urgent
Urine Culture Urgent
VICKI Source: U
Specimen Description:
Date Specimen was Collected: 11/01/24
Time Specimen was Collected: 20:52
11/01/24 23:00
Magnesium Oxide 500 mg PO NOW STA
Potassium Chloride [KCl] 40 meq PO NOW STA
11/01/24 23:01
STOOL [C difficile Antigen & Toxins] Urgent
VICKI Source: Feces/Stool
Specimen Description:
Stool Culture Urgent
VICKI Source: Feces/Stool
Specimen Description:
Abnormal Lab Results
11/01/24 11/01/24
19:18 21:26
WBC 13.1 H 10^3/uL
(4.8-10.8)
RBC 4.02 L 10^6/uL
(4.20-5.40)
Hgb 11.9 L g/dL
(12.0-16.0)
Hct 35.8 L %
(37.0-47.0)
Plt Count 426 H 10^3/uL
(130-400)
Abs Immat Gran (auto) 0.1 H 10^3/uL
(0-0.05)
Absolute Neuts (auto) 10.4 H 10^3/uL
(1.4-6.5)
Absolute Monos (auto) 0.7 H 10^3/uL
(0.1-0.6)
Immature Gran % 0.7 H %
(0-0.5)
Neutrophils % 79.9 H %
(42.2-75.2)
Lymphocytes % 13.0 L %
(20.5-51.1)
Potassium 3.4 L mmol/L
(3.5-5.1)
Glucose 172 H mg/dl
(70-99)
Magnesium 1.4 L mg/dl
(1.6-2.3)
Leukocyte Esterase Rfl 1+ A
(Negative)
11/01/24 19:18
11/01/24 19:18
Vital Signs
Initial and Last Documented VS:
Initial Vital Signs
Temp Pulse Resp BP Pulse Ox
98.3 F 130 16 162/96 97
11/01/24 19:05 11/01/24 19:05 11/01/24 19:05 11/01/24 19:05 11/01/24 19:05
Last Documented Vital Signs
Temp Pulse Resp BP Pulse Ox
98.3 F 105 16 127/85 96
11/01/24 19:05 11/01/24 20:54 11/01/24 20:54 11/01/24 20:54 11/01/24 20:54
Dieudonnelt;Ferny Foy, DO - Last Filed: 11/01/24 23:02>
Orders/Labs/Results
Orders:
Orders
11/01/24 19:07
Electrocardiogram (*1) Urgent
Reason for Study: Other
Other Reason for Exam: tachycardia
EKG- Treatment ONCE
11/01/24 19:10
CT Abd/pel Without Iv Or Oral Urgent
Comment:
Reason For Exam: R flank pain
11/01/24 19:18
Complete Blood Count/With Diff Urgent
Comprehensive Metabolic Panel Urgent
Lipase Urgent
Magnesium Urgent
11/01/24 20:24
Ibuprofen [Motrin] 600 mg PO NOW STA
11/01/24 21:26
Urinalysis Reflex To Culture Urgent
Date Specimen was Collected: 11/01/24
Time Specimen was Collected: 20:52
Urine Microscopic Reflex Cult Urgent
Urine Culture Urgent
VICKI Source: U
Specimen Description:
Date Specimen was Collected: 11/01/24
Time Specimen was Collected: 20:52
11/01/24 23:00
Magnesium Oxide 500 mg PO NOW STA
Potassium Chloride [KCl] 40 meq PO NOW STA
11/01/24 23:01
STOOL [C difficile Antigen & Toxins] Urgent
VICKI Source: Feces/Stool
Specimen Description:
Stool Culture Urgent
VICKI Source: Feces/Stool
Specimen Description:
Abnormal Lab Results
11/01/24 11/01/24
19:18 21:26
WBC 13.1 H 10^3/uL
(4.8-10.8)
RBC 4.02 L 10^6/uL
(4.20-5.40)
Hgb 11.9 L g/dL
(12.0-16.0)
Hct 35.8 L %
(37.0-47.0)
Plt Count 426 H 10^3/uL
(130-400)
Abs Immat Gran (auto) 0.1 H 10^3/uL
(0-0.05)
Absolute Neuts (auto) 10.4 H 10^3/uL
(1.4-6.5)
Absolute Monos (auto) 0.7 H 10^3/uL
(0.1-0.6)
Immature Gran % 0.7 H %
(0-0.5)
Neutrophils % 79.9 H %
(42.2-75.2)
Lymphocytes % 13.0 L %
(20.5-51.1)
Potassium 3.4 L mmol/L
(3.5-5.1)
Glucose 172 H mg/dl
(70-99)
Magnesium 1.4 L mg/dl
(1.6-2.3)
Leukocyte Esterase Rfl 1+ A
(Negative)
11/01/24 19:18
11/01/24 19:18
Vital Signs
Initial and Last Documented VS:
Initial Vital Signs
Temp Pulse Resp BP Pulse Ox
98.3 F 130 16 162/96 97
11/01/24 19:05 11/01/24 19:05 11/01/24 19:05 11/01/24 19:05 11/01/24 19:05
Last Documented Vital Signs
Temp Pulse Resp BP Pulse Ox
98.3 F 105 16 127/85 96
11/01/24 19:05 11/01/24 20:54 11/01/24 20:54 11/01/24 20:54 11/01/24 20:54
<Ferny Foy DO - Last Filed: 11/01/24 23:02>
MDM/Problems Addressed
Differential Diagnosis Includes:
UTI stone strain, doubt AAA conceivably colitis
MDM/Problems Addressed:
Right flank
Chronic conditions affecting care: HTN
Acute Exacerbation and/or Progression of Chronic Illness: HTN
<Ferny Foy DO - Last Filed: 11/01/24 23:02>
*Radiology
Radiology exam reviewed: radiology read reviewed
*Pulse Oximetry
Patient hypoxic: no
*Critical Care Note
Total Time (30-74mins, 75-104mins- exclusive of procedures): Not Applicable
<Ferny Foy DO - Last Filed: 11/01/24 23:02>
Update Note
Update Note:
11 PM update, labs noted CT noted urine noted reviewed with patient she is feeling better her abdomen is soft nontender apparently has had chronic colitis followed by Dr. Herring was treated with a very expensive antibiotic she is samples for
according to the patient and family at this point, will replete her electrolytes, try to get a stool sample discharged her to follow-up with the caveat that if she worsens to come to the ER for reevaluation
ED Attending Note
<Jessica Oleary PA-C - Last Filed: 11/01/24 21:05>
-
Portions of this chart may have been created with voice recognition software.� Occasional wrong word or��sound alike� substitutions may have occurred due to the inherent limitations of voice recognition software.
Discharge Plan
Departure
Prescriptions:
No Action
therapeutic multivitamin Tablet
1 tab PO DAILY
acetaminophen [Tylenol] 325 mg Tablet
650 mg PO Q4H PRN (Reason: mild pain)
calcium carbonate [Calcium 500] 500 mg calcium (1,250 mg) Tablet
500 mg PO DAILY
magnesium oxide 500 mg magnesium Tablet
500 mg PO DAILY
Visbiome 112.5 billion cell capsule
2 cap PO DAILY
Referrals:
Alexia Tafoya DO [Family Provider] -
Interventions
Interventions:
*Risk Screen - Suicide Last Done: 11/01/24 19:05
*General Assessment Last Done: 11/01/24 19:05
*Neglect/Abuse Screening Last Done: 11/01/24 19:05
ED- Fall Risk Assessment Last Done: 11/01/24 20:51
*ED COVID-19 Vaccine History Last Done: 11/01/24 19:05
ED-Female Genitourinary Assessment Last Done: 11/01/24 20:51
Discharge Date and Time
Print Language: MALAYSIAN
[2024-11-01 19:26] LABS: % Basophils 0.5 % (0-2); % Eosinophils 0.8 % (0-6); % Immature Granulocytes 0.7 % (0-0.5); % Monocytes 5.1 % (1.7-9.3); % Neutrophils 79.9 % (42.2-75.2); Absolute Basophils 0.1 10^3/uL (0-0.2); Absolute Eosinophils 0.1 10^3/uL (0-0.7); Absolute Immature Granulocytes 0.1 10^3/uL (0-0.05); Absolute Lymphocytes 1.7 10^3/uL (1.2-3.4); Absolute Monocytes 0.7 10^3/uL (0.1-0.6); Absolute Neutrophils 10.4 10^3/uL (1.4-6.5); Hematocrit 35.8 % (37.0-47.0); Hemoglobin 11.9 g/dL (12.0-16.0); Mean Corp Hgb Conc. 33.2 g/dL (33.0-37.0); Mean Corpuscular Hgb 29.6 pg (27.0-31.0); Mean Corpuscular Volume 89.1 fL (81.0-99.0); Mean Platelet Volume 7.9 fL (7.4-10.4); Nucleated Red Blood Cells % 0 %; Platelet Count 426 10^3/uL (130-400); Red Blood Cell Count 4.02 10^6/uL (4.20-5.40); Red Cell Dist. Width 12.1 % (11.5-14.5); White Blood Cell Count 13.1 10^3/uL (4.8-10.8)
[2024-11-01 19:48] LABS: ALT (SGPT) < 10 U/L (0-35); AST (SGOT) 22 U/L (14-36); Albumin 3.9 g/dl (3.5-5.0); Alkaline Phosphatase 119 U/L (38-126); Blood Urea Nitrogen 15 mg/dl (7-17); Calcium 9.3 mg/dl (8.4-10.2); Carbon Dioxide 25 mmol/L (22-30); Chloride 98 mmol/L (98-107); Glucose 172 mg/dl (70-99); Lipase 120 U/L (23-300); Magnesium 1.4 mg/dl (1.6-2.3); Potassium 3.4 mmol/L (3.5-5.1); Sodium 135 mmol/L (135-145); Total Bilirubin 0.5 mg/dl (0.2-1.3); Total Protein 6.9 g/dl (6.3-8.2); eGFR > 60.00
[2024-11-01] MEDS: MOTRIN 600 MG PO (20:50)
[2024-11-01 20:51] VITALS: BMI 27.2
[2024-11-01 20:54] VITALS: BP 127/85
[2024-11-01 21:32] LABS: Urine Albumin Trace (Neg - Trace); Urine Bilirubin Negative (Negative); Urine Character Clear (Clear); Urine Color Yellow; Urine Glucose Negative (Negative); Urine Ketone Negative (Negative); Urine Leukocyte 1+ (Negative); Urine Nitrite Negative (Negative); Urine Occult Blood Negative (Negative); Urine Specific Gravity 1.015 (<1.030); Urine Urobilinogen Negative (Neg - 1+)
[2024-11-01 22:01] LABS: Urine Red Blood Cell 0-2 /HPF (0-2)
[2024-11-01 22:02] LABS: Urine White Cell 0-2 /HPF (0-5)
[2024-11-01] MEDS: MAGNESIUM OXIDE 500 MG PO (23:14)
[2024-11-01] MEDS: KCL 40 MEQ PO (23:14)
== END 2024-11-01 23:40 | disposition home or self-care (01) ==
LOC: EMR 19:03
PROVIDERS: Physician Assistant; EMERGENCY PHYSICIAN Emergency Medicine; FAMILY PHYSICIAN Family Medicine
DX: K52.9 Noninfective gastroenteritis and colitis, unspecified (principal); I10 Essential (primary) hypertension; G47.33 Obstructive sleep apnea (adult) (pediatric); I25.10 Atherosclerotic heart disease of native coronary artery without angina pectoris; Z90.49 Acquired absence of other specified parts of digestive tract; Z87.442 Personal history of urinary calculi
CPT/HCPCS: 99284; 74176; 80053; 81003; 81015; 83690; 83735; 85025; 87045; 87046; 87086; 87324; 87427; 87449; 93005

== ENCOUNTER 2025-03-30 22:54 | Inpatient (IN) | payer OTHER, SELFPAY ==
[2025-03-30] VITALS (7 sets, daily range): BP systolic 94–115; BP diastolic 60–71; BMI 22.3
--- NOTE | 2025-03-30 17:35 | ED.GENMED ---
History of Present Illness
General
Chief Complaint: Generalized Pain
Source: patient, spouse and family
Exam Limitations: none
Time Seen by Provider: 03/30/25 17:04
Nursing documentation reviewed up to this point in time: agreed with
History of Present Illness
History of Present Illness:
Pleasant 69-year-old female presents to the emergency department with generalized pain. She states that her upper back, clavicle and left ankle hurt. She states that for the last week she has been having difficulty walking. Denies current fever
but states that she had low-grade fever yesterday and another day in the past week. Patient has been having palpitations and was seen by Dr. Worley, her search engine optimization analyst. She had a 5-day Holter monitor and states that the palpitations came in
clusters and there was no concerning rhythm discovered. Patient saw a telemetry doc this week and prescribed Imodium for nonbloody diarrhea. She states that her diarrhea has improved. Patient reports no current abdominal pain. She does have a
history of anemia and states that this is similar.
Past History
Past History
ED Past Medical History: HTN and Other (kidney stones, menieire's, mac degen, [place], Sleep apnea, Colitis, )
ED Past Surgical History: Cholecystectomy, (X 2), Orthopedic (Carpal tunnel), Urological (multiple cystos) and Other (ventral hernia. )
Social History
Tobacco: Non-smoker
Alcohol: None
Drug: None
Personal:
Living: with family
Employment: Employed
Family History
Family History: CAD
Review of Systems
Review of Systems
Allergies reviewed?: Yes
All Other Systems: ROS reviewed and negative except as documented in HPI and ROS
Constitutional: Reports no symptoms
EENT: Reports no symptoms
Respiratory: Reports no symptoms
Cardiac: Reports no symptoms
ABD/GI: Reports no symptoms
: Reports no symptoms
Musculoskeletal: Reports no symptoms
Skin: Reports no symptoms
Neurological: Reports no symptoms
Endocrine: Reports no symptoms
Hematologic/Lymphatic: Reports no symptoms
Psychiatric: Reports anxiety
Phy Exam
General Physical Exam
General Presentation: well appearing
General Skin: pale
General Habitus: normal
General Mental: alert
General Hydration: appears well hydrated
ENT Exam
ENT Exam: EOMI, pharynx normal, neck supple and normocephalic
Eye Exam
Eye Exam: PERRL, cornea clear and conjunctiva normal
Cardiovascular Exam
Cardiovascular Exam: regular rate/rhythm, no edema, no murmur and normal peripheral pulses
Pulmonary Exam
Pulmonary Exam: lungs clear, no respiratory distress, no rales, no crackles, no rhonchi, no stridor, no wheezing and no cough
Gastrointestinal Exam
Gastrointestinal Exam: normal bowel sounds, non tender, soft, no organomegaly, no pulsatile mass and non distended
Neurological Exam
Neurological Exam: alert, oriented x3, no motor deficits and speech normal
Musculoskeletal Exam
Musculoskeletal Exam: full ROM and no edema
Skin Exam
Skin Exam: normal color, warm/dry, no rash and no petechia
Psychiatric Exam
Psychiatric Exam: normal mood/affect
Course
Orders/Labs/Results
Orders:
Orders
03/30/25 17:33
Add On- LAB Urgent
Tests Added?: sed, crp, pt/inr
03/30/25 17:34
Ankle, left 3 view CR [CR Ankle - Left Min 3 Views ] Urgent
Comment:
Reason For Exam: pain, no known trauma
03/30/25 17:35
CR Chest - 2 Views Urgent
Comment:
Reason For Exam: upper chest pain
03/30/25 17:36
Urinalysis Reflex To Culture Urgent
03/30/25 17:40
C-Reactive Protein Urgent
Comment: ADD ON
Complete Blood Count/With Diff Urgent
Comprehensive Metabolic Panel Urgent
Erythrocyte Sed Rate Urgent
Comment: ADD ON
Prothrombin Time Urgent
Comment: ADD ON
03/30/25 20:24
0.9% Sodium Chloride 1000 ml [Nss] 1,000 ml IV 250 mls/hr
Abnormal Lab Results
03/30/25
17:40
WBC 18.3 H 10^3/uL
(4.8-10.8)
Hct 35.6 L %
(37.0-47.0)
Plt Count 511 H 10^3/uL
(130-400)
Abs Immat Gran (auto) 0.8 H 10^3/uL
(0-0.05)
Absolute Neuts (auto) 15.0 H 10^3/uL
(1.4-6.5)
Immature Gran % 4.3 H %
(0-0.5)
Neutrophils % 81.8 H %
(42.2-75.2)
Lymphocytes % 9.9 L %
(20.5-51.1)
ESR 53 H mm/hour
(0-20)
Sodium 128 L mmol/L
(135-145)
Chloride 90 L mmol/L
(98-107)
BUN 37 H mg/dl
(7-17)
Creatinine 1.1 H mg/dL
(0.6-1.0)
Glucose 113 H mg/dl
(70-99)
Alkaline Phosphatase 134 H U/L
(38-126)
C-Reactive Protein 244.40 H mg/L
(0.0-10.00)
03/30/25 17:40
03/30/25 17:40
Vital Signs
Initial and Last Documented VS:
Initial Vital Signs
Temp Pulse Resp BP Pulse Ox
98.7 F 95 18 115/70 96
03/30/25 15:56 03/30/25 15:56 03/30/25 15:56 03/30/25 15:56 03/30/25 15:56
Last Documented Vital Signs
Temp Pulse Resp BP Pulse Ox
98.2 F 81 14 111/63 95
03/30/25 20:51 03/30/25 22:00 03/30/25 20:51 03/30/25 22:00 03/30/25 22:00
*Radiology
Radiology exam reviewed: radiology read reviewed
*Critical Care Note
Total Time (30-74mins, 75-104mins- exclusive of procedures): 31 (Critical care statement: A total of 31 minutes of critical care time was provided for this patient. This time is separate from time utilized to perform the aforementioned documented
procedures. Aggregate critical care time includes only time during which I was engaged in work directl)
Update Note
Update Note:
inflammatory process as evidenced by elevated CRP and sed rate
Hyponatremia
Renal insufficiency could be likely dehydration
Awaiting urinalysis
Patient still unable to urinate. Receiving fluids. Will be admitted to the hospitalist service for dehydration, musculoskeletal pain, polymyalgia rheumatica, hyponatremia
ED Attending Note
-
Portions of this chart may have been created with voice recognition software.� Occasional wrong word or��sound alike� substitutions may have occurred due to the inherent limitations of voice recognition software.
Discharge Plan
Departure
Patient Disposition: Admit
Date of Disposition: 03/30/25
Time of Disposition: 22:07
Presentation/result/management discussed w/ accepting MD/DO: Hospitalist
Condition: Good
Discharge Problem:
Dehydration, Acute hyponatremia, Polymyalgia rheumatica, Acute dehydration
Prescriptions:
No Action
therapeutic multivitamin Tablet
1 tab PO DAILY
acetaminophen [Tylenol] 325 mg Tablet
650 mg PO Q4H PRN (Reason: mild pain)
calcium carbonate [Calcium 500] 500 mg calcium (1,250 mg) Tablet
500 mg PO DAILY
famotidine 20 mg Tablet
20 mg PO DAILY
lisinopril 5 mg Tablet
5 mg PO DAILY
Ocuvite Tablet
1 tab PO DAILY
Referrals:
Patti Tafoya DO [Family Provider] -
Interventions
Interventions:
*Risk Screen - Suicide Last Done: 03/30/25 15:56
*General Assessment Last Done: 03/30/25 15:56
*Neglect/Abuse Screening Last Done: 03/30/25 15:56
*ED- Fall Risk Assessment Last Done: 03/30/25 20:51
JB-Sbahno-Ctnffzvpni Assessment Last Done: 03/30/25 21:01
Discharge Date and Time
Print Language: [place] CITIZEN
[2025-03-30 18:04] LABS: % Basophils 0.8 % (0-2); % Eosinophils 0.1 % (0-6); % Immature Granulocytes 4.3 % (0-0.5); % Lymphocytes 9.9 % (20.5-51.1); % Monocytes 3.1 % (1.7-9.3); % Neutrophils 81.8 % (42.2-75.2); Absolute Basophils 0.2 10^3/uL (0-0.2); Absolute Immature Granulocytes 0.8 10^3/uL (0-0.05); Absolute Lymphocytes 1.8 10^3/uL (1.2-3.4); Absolute Monocytes 0.6 10^3/uL (0.1-0.6); Hematocrit 35.6 % (37.0-47.0); Hemoglobin 12.4 g/dL (12.0-16.0); Mean Corp Hgb Conc. 34.8 g/dL (33.0-37.0); Mean Corpuscular Hgb 29.1 pg (27.0-31.0); Mean Corpuscular Volume 83.6 fL (81.0-99.0); Mean Platelet Volume 7.6 fL (7.4-10.4); Nucleated Red Blood Cells % 0 %; Platelet Count 511 10^3/uL (130-400); Red Blood Cell Count 4.26 10^6/uL (4.20-5.40); Red Cell Dist. Width 12.8 % (11.5-14.5); White Blood Cell Count 18.3 10^3/uL (4.8-10.8)
[2025-03-30 18:12] LABS: INR 1.01; PT 13.6 Sec (11.4-14.6)
[2025-03-30 18:14] LABS: Erythrocyte Sed Rate 53 mm/hour (0-20)
[2025-03-30 18:20] LABS: ALT (SGPT) < 10 U/L (0-35); AST (SGOT) 24 U/L (14-36); Albumin 3.8 g/dl (3.5-5.0); Alkaline Phosphatase 134 U/L (38-126); Blood Urea Nitrogen 37 mg/dl (7-17); Calcium 8.9 mg/dl (8.4-10.2); Carbon Dioxide 26 mmol/L (22-30); Chloride 90 mmol/L (98-107); Estimated Creatinine Clearance 33 ml/min; Glucose 113 mg/dl (70-99); Potassium 3.6 mmol/L (3.5-5.1); Sodium 128 mmol/L (135-145); Total Bilirubin 0.8 mg/dl (0.2-1.3); Total Protein 6.9 g/dl (6.3-8.2); eGFR 54.39
--- NOTE | 2025-03-30 20:30 | EDRN ---
Pt sitting in chair in room. Asked pt to sit on stretcher so VS can be taken and IVF hung. Pt has not provided urine specimen. Pt asked to go to the bathroom first. Pt ambulatory to bathroom.
[2025-03-30] MEDS: NSS 1000 IV ×2 (20:44→23:25)
--- NOTE | 2025-03-30 21:27 | HPS.HSE ---
Family Physician
-
Family Physician: Patti Tafoya DO
Chief Complaint
-
Generalized pain
History of Present Illness
This is Is a 69-year-old female with past medical history significant for hypertension, sleep apnea, recurrent diarrhea, recurrent episodes of hyponatremia who presents to the emergency department with 1 week of worsening generalized pain and was
found to be hyponatremic to sodium of 128.
Patient reports that she has been having this generalized pain weakness with poor p.o. intake and diarrhea for several weeks. She did see cardiology recently for associated palpitations. She had Holter monitoring which showed no abnormal
electrical activity. She had some swelling in her legs when she saw cardiology but she had an echocardiogram which was completely normal. Patient reports having occasional chills and denies fevers or sweats. She denies any rash. She denies any
insect bites. She states that she has pain in her shoulders bilaterally on the anterior side. She also has pain that seems to be radiating down the upper extremities bilaterally which she describes as an ache. She denies any weakness. She
reports generalized pain in her joints and muscles but denies any specific joint swelling. Patient reports left-sided hip pain as well as a left-sided ankle pain. She is now having difficulty walking due to the ankle pain. Spouse reports that she
has had very decreased p.o. intake and continues to have loose stools regularly. Patient reports painful ulcerations or in the upper and lower lips for which she was treated with dexamethasone solution and reports that she has continued lack of
improvement. She denies acute urinary symptoms. She denies cough, shortness of breath dyspnea on exertion or exertional chest pain.
Patient denies any new medications.
In the emergency department she was afebrile, blood pressure was 100/60 with pulse of 80 and she was satting 99% on room air with a temperature of 98.2.
She had leukocytosis to 18,000, hemoglobin and platelets were normal. Sodium was 128. Potassium chloride and bicarb are normal. BUN/creatinine were stable at 37 and 1.1.
Chest x-ray shows no acute infiltrates or nodules. Ankle x-ray shows no fracture or dislocation. She has quite elevated inflammatory markers with a ESR of 53 and CRP 144. LFT shows no acute abnormalities.
Medical History
Past Medical History
Past Medical History: Reports Other
Additional Past Medical History:
Collagenous colitis
C. difficile diarrhea
E. coli diarrhea
Hypertension
M�ni�re's disease
Nephrolithiasis
Macular degeneration
Obstructive sleep apnea
Past Surgical History: Reports Other
Additional Past Surgical History:
�Cholecystectomy, (x2), Orthopedic (CTR b/l), Other (Ventral hernia repair)
Social History
Tobacco: Non-smoker
Alcohol: None
Drug: None
Personal:
Living: With Family
Family History
Family History: CAD
Allergies / Home Medications
Allergies reflects when Allergies were last updated in [employer].
Home Medications with original date entered in [employer]
Allergy/Medication List:
Allergies
Allergy/AdvReac Type Severity Reaction Status Date / Time
No Known Drug Allergies Allergy Unknown Verified 03/30/25 15:56
Home Medications
therapeutic multivitamin 1 tab PO DAILY Supplement 12/16/23
acetaminophen 325 mg tablet (Tylenol) 650 mg PO Q4H PRN mild pain 01/18/24
calcium carbonate 500 mg PO DAILY 01/18/24
famotidine 20 mg tablet 20 mg PO DAILY 03/30/25
lisinopril 5 mg tablet 5 mg PO DAILY 03/30/25
vitamin A-vitamin C-vit E-min tablet 1 tab PO DAILY 03/30/25
Review of Systems
-
History Source: Patient
Constitutional: Reports Fatigue and Chills
EENT: Reports Mouth Pain
Respiratory: Reports No Symptoms
Cardiac: Reports Palpitations
Abdomen/GI: Reports Diarrhea
: Reports No Symptoms
Musculoskeletal: Reports Joint Pain
Skin: Reports No Symptoms
Neurological: Reports No Symptoms
Endocrine: Reports No Symptoms
Hematologic/Lymphatic: Reports No Symptoms
Psych: Reports No Symptoms
Physical Exam
Vital Signs
Vital Signs
Temp Pulse Resp BP Pulse Ox
98.2 F 80 14 102/63 99
03/30/25 20:51 03/30/25 20:51 03/30/25 20:51 03/30/25 20:51 03/30/25 20:51
Physical Exam
General: Well Developed, Conversant and Poor Appetite
HEENT: NormoCephalic, Anicteric, Moist mucous membranes, Atraumatic and PERRLA
Respiratory: Clear
Cardiac: S1/S2 and Regular Rhythm
Breast: Deferred by me
GI: Soft, Non Tender, Non Distended and Normal Bowel Sounds
Rectal: Deferred by Provider
Genito-urinary: Deferred by me
Musculoskeletal: No Clubbing, No Cyanosis and No Edema
Skin: Warm; No Rash or Lesions
Neuro: AO x 3 and Nonfocal/grossly intact
Hematologic/Lymphatic: No Lymphadenopathy
Psych: Calm
Laboratory Results
-
03/30/25 17:40
03/30/25 17:40
Laboratory Results
PT 13.6 Sec (11.4-14.6) 03/30/25 17:40
INR 1.01 03/30/25 17:40
Total Bilirubin 0.8 mg/dl (0.2-1.3) 03/30/25 17:40
AST 24 U/L (14-36) 03/30/25 17:40
ALT < 10 U/L (0-35) 03/30/25 17:40
Alkaline Phosphatase 134 U/L (38-126) H 03/30/25 17:40
Data Reviewed
-
Diagnostic Radiology: Report Reviewed by me
Lab Data: Labs Reviewed by me
Old Records: Reviewed
Impression/Plan
-
IMPRESSION:
69 y.o with generalized pain mostly oral pain, shoulder and arm pain, left hip and ankle pain for weeks becoming unbearable for the last few days prompting ED visit. Decreased appetite and likely hypovolemic. Leukocytosis of uncertain etiology.
Elevated inflammatory markers. No obvious infection and no rash, joint swelling or erythema. History of collagenous colitis with complaint of chronic diarrhea. No abdominal pain, nausea, vomiting.
PLAN:
1. Hyponatremia - Hypovolemic hyponatremia from reduced intake and chronic diarrhea. Similar presentation before but then she needed hypertonic saline. Her TSH and cortisol were normal at that time.
- admit to med/surg
- check urine osmolality/ urine sodium
- agree with continue fluid resuscitation
- hold lisinopril for now
- orthostatic vs in am
2. Leukocytosis - WBC 18, normal diff. No obvious infectious source. With elevated inflammatory markers and palpitations concern for possible endocarditis with indolent presentation. Recent echo showed normal function and valves.
- check u/a, urine culture for uti
- blood cultures
- Chest xray is clear
- No watery diarrhea here.
- hold abx unless spike fever
3. Elevated inflammatory markers - ESR, CRP elevation. Generalized joint aches and pains seeming to affect more proximal joints (bilateral shoulders) without complaint of weakness are age raise concern for PMR/GCA. She has no headache, vision
changes or jaw claudication. ?arm claudication.
- check RF and CCP
- BERNARDINO screen and reflex
- u/a for blood, protein activity suggestive of renal involved vasculitis
- screening anca
- consider trial of steroids for pmr if cultures negative
DVT PPX - lovenox sq
Code status - Full Code
[2025-03-31] VITALS (9 sets, daily range): BP systolic 110–151; BP diastolic 60–76; BMI 28.8
[2025-03-31 06:22] LABS: Hematocrit 33.4 % (37.0-47.0); Hemoglobin 11.4 g/dL (12.0-16.0); Mean Corp Hgb Conc. 34.1 g/dL (33.0-37.0); Mean Corpuscular Hgb 29.1 pg (27.0-31.0); Mean Corpuscular Volume 85.2 fL (81.0-99.0); Mean Platelet Volume 7.9 fL (7.4-10.4); Platelet Count 459 10^3/uL (130-400); Red Blood Cell Count 3.92 10^6/uL (4.20-5.40); Red Cell Dist. Width 12.8 % (11.5-14.5); White Blood Cell Count 19.3 10^3/uL (4.8-10.8)
[2025-03-31 06:30] LABS: Blood Urea Nitrogen 25 mg/dl (7-17); Calcium 8.1 mg/dl (8.4-10.2); Carbon Dioxide 25 mmol/L (22-30); Chloride 99 mmol/L (98-107); Creatine Phosphokinase < 20 U/L (30-135); Estimated Creatinine Clearance 45 ml/min; Glucose 100 mg/dl (70-99); HDL Cholesterol 43 mg/dl; LDL Cholesterol, Calculated 61 mg/dl; Lipase < 10 U/L (23-300); Potassium 3.5 mmol/L (3.5-5.1); Sodium 132 mmol/L (135-145); Total Cholesterol 126 mg/dl (50-199); Triglyceride 111 mg/dl (10-149); Uric Acid 9.3 mg/dl (2.5-6.2); Very Low Density Lipoprotein 22 mg/dl (0-30); eGFR > 60.00
[2025-03-31 07:02] LABS: Cortisol, Random 27.5 ug/dl; TSH Reflex To Free T4 0.28 uIU/ml (0.47-4.68)
[2025-03-31] MEDS: NSS 1000 IV ×2 (07:03→18:06)
[2025-03-31 07:21] LABS: Vitamin B12 > 1000 pg/ml (239-931)
[2025-03-31] MEDS: THERAGRAN 1 TABLET PO (07:21)
[2025-03-31] MEDS: ZESTRIL 5 MG PO (07:21)
[2025-03-31] MEDS: OSCAL CAL 500 500 MG PO (07:22)
[2025-03-31] MEDS: PEPCID 20 MG PO (07:22)
[2025-03-31 07:29] LABS: Free T4 2.21 ng/dl (0.78-2.19)
--- NOTE | 2025-03-31 09:45 | W.PN.HOSP.TC ---
Today's Communication/Plan
-
see plan
Assessment / Plan
Assessment / Plan
Gen: NAD, AAOx3.
Eyes: EOMI, PERRLA, no scleral icterus.
Neck: supple.
CV: RRR, +S1/S2, no m/r/g.
Resp: CTAB, no rales, wheezes, or rhonchi.
Abd: +BS, soft, NT, ND
Skin: No rashes.
Neuro: CN 2-12 intact, non-focal.
Psych: Normal mood and affect.
CXR: No acute cardiopulmonary process.
L ankle Xray: No acute fracture.
Hypovolemic hyponatremia:
-from reduced intake and chronic diarrhea. Similar presentation before but then she needed hypertonic saline. Her TSH and cortisol were normal at that time.
-Na has improved with IVFs, no 132
-cortisol normal
-cont NS as pt with diarrhea due to collagenous colitis
Hyperthyroidism:
-TSH 0.28, fT4 0.28
-start methimazole 5mg daily
-outpt endocrine eval
Leukocytosis:
-with L-shift
-no evidence of acute infection. CXR normal, afebrile.
-monitor off abx
-follow BCxs
Elevated inflammatory markers:
-CRP elevated as in the past
-ESR 53, was 87 on 01/03/25
-no headache, vision changes or jaw claudication
-RF, anti-CCP, BERNARDINO, ANCAs pending
-pt states she was seen by Dr. Riley in the past and was 'brushed off' and told she had a mild inflammatory state
-will trial prednisone to assess if it improves her symptoms
FULL/Lovenox
Total time spent on today's encounter was 50 minutes which included time spent in counseling the patient/family regarding diagnosis and treatment plan as listed above, goals of care, and symptom management. Case was discussed with nursing staff,
specialists, and care coordinators/case management. All labs and imaging personally reviewed by me. Remainder the time spent in detailed review of previous records, lab data, imaging, and other medical provider documentation.
Anticipated Discharge: Within 24 hours
Subjective/Interval History
-
Date of Service: March 31, 2025
Patient complains of myalgias which are more in the proximal joints. Denies chest pain or shortness of breath.
Objective Data
-
Labs:
Laboratory Results
03/31/25
05:45
WBC 19.3 H
Hgb 11.4 L
Hct 33.4 L
Plt Count 459 H
Sodium 132 L
Potassium 3.5
Chloride 99
Carbon Dioxide 25
BUN 25 H
Creatinine 0.8
Glucose 100 H
Calcium 8.1 L
Vital Signs:
Vital Signs
Temp Pulse Resp BP Pulse Ox
98.8 F 101 14 110/71 97
03/30/25 23:01 03/31/25 07:21 03/30/25 23:01 03/31/25 08:00 03/31/25 08:00
[2025-03-31 11:03] LABS: Urine Albumin 2+ (Neg - Trace); Urine Bilirubin Negative (Negative); Urine Character Clear (Clear); Urine Color Yellow; Urine Glucose Negative (Negative); Urine Ketone 2+ (Negative); Urine Leukocyte 1+ (Negative); Urine Nitrite Negative (Negative); Urine Occult Blood Negative (Negative); Urine Specific Gravity 1.015 (<1.030); Urine Urobilinogen Negative (Neg - 1+)
[2025-03-31 11:36] LABS: Urine Sodium 9 mmol/L (30-90)
[2025-03-31 11:37] LABS: Osmolality Urine 427 mOsm/kg (300-900)
[2025-03-31 11:41] LABS: Urine Squamous Cell >30 /LPF (Few)
[2025-03-31 11:43] LABS: Urine Bacteria Few (Negative); Urine Red Blood Cell 0-2 /HPF (0-2); Urine White Cell 0-2 /HPF (0-5)
[2025-03-31] MEDS: DELTASONE 40 MG PO (11:59)
[2025-03-31] MEDS: TAPAZOLE 5 MG PO (11:59)
[2025-03-31 13:52] LABS: Rheumatoid Agglutinin Positive (<10 IU)
[2025-03-31 15:36] LABS: Rheumatoid Agg. Semi-quant 256 IU
--- NOTE | 2025-03-31 16:06 | CM ---
CM attempted meeting with pt, receiving bedside care
Meeting with son/Yahir in hallway
Pt resides with her spouse in a spit level house with OSTE
5+8 steps to main living area and 5+ to B/B
Pt is indep, no DMEs in home
Pt will likely benefit from PT/OT once appropriate
Discharge Disposition- home follow for needs
[2025-03-31] MEDS: IMODIUM 2 MG PO (16:07)
[2025-03-31] MEDS: TYLENOL 650 MG PO (16:08)
[2025-03-31] MEDS: ULTRAM 50 MG PO (16:08)
[2025-03-31] MEDS: LOVENOX 30 MG SC (17:31)
[2025-04-01] MEDS: IMODIUM 2 MG PO ×2 (00:51→21:43)
[2025-04-01] MEDS: NSS 1000 IV (03:20)
[2025-04-01 08:05] VITALS: BP 120/58
[2025-04-01] MEDS: DELTASONE 40 MG PO (08:43)
[2025-04-01] MEDS: TAPAZOLE 5 MG PO (08:43)
[2025-04-01] MEDS: PEPCID 20 MG PO (08:43)
[2025-04-01] MEDS: THERAGRAN 1 TABLET PO (08:43)
[2025-04-01] MEDS: OSCAL CAL 500 500 MG PO (08:43)
--- NOTE | 2025-04-01 09:14 | W.PN.HOSP.TC ---
Addendum entered and electronically signed by Ryan Maldonado MD 04/01/25 13:26:
CONCHIS has been ruled out, renal insufficiency only
Original Note:
Today's Communication/Plan
-
see plan
Assessment / Plan
Assessment / Plan
Gen: NAD, AAOx3.
Eyes: EOMI, PERRLA, no scleral icterus.
Neck: supple.
CV: remains RRR, +S1/S2, no m/r/g.
Resp: CTAB anteriorly, no rales, wheezes, or rhonchi.
Abd: remains +BS, soft, NT, ND
Skin: No rashes.
Neuro: CN 2-12 intact, non-focal.
Psych: Normal mood and affect.
CXR: No acute cardiopulmonary process.
L ankle Xray: No acute fracture.
Hypovolemic hyponatremia:
-from reduced intake and chronic diarrhea. Similar presentation before but then she needed hypertonic saline. Her TSH and cortisol were normal at that time.
-Na has improved with IVFs, now 132
-cortisol normal
Hyperthyroidism:
-TSH 0.28, fT4 0.28
-cont methimazole 5mg daily
-outpt endocrine eval
-fever could be due to hyperthyroidism
Leukocytosis:
-with L-shift
-no evidence of acute infection. CXR normal.
-one fever on 03/31/25 @ 1617, fever could be due to hyperthyroidism
-cont to monitor off abx
-follow BCxs (NGTD)
-c/s ID
-symptoms (weakness and myalgias) have improved with Prednisone
-suspect that pt's clinical presentation and constellation of symptoms related to acute autoimmune inflammatory process
Elevated inflammatory markers:
-CRP elevated as in the past
-ESR 53, was 87 on 01/03/25
-no headache, vision changes or jaw claudication
-RF 256
-anti-CCP, BERNARDINO, ANCAs pending
-pt states she was seen by Dr. Riley in the past and was 'brushed off' and told she had a mild inflammatory state
-symptoms (weakness and myalgias) have improved with Prednisone
-suspect that pt's clinical presentation and constellation of symptoms related to acute autoimmune inflammatory process
FULL/Lovenox
Total time spent on today's encounter was 51 minutes which included time spent in counseling the patient/family regarding diagnosis and treatment plan as listed above, goals of care, and symptom management. Case was discussed with nursing staff,
specialists, and care coordinators/case management. All labs and imaging personally reviewed by me. Remainder the time spent in detailed review of previous records, lab data, imaging, and other medical provider documentation.
Anticipated Discharge: 24 - 48 hours
Subjective/Interval History
-
Date of Service: April 01, 2025
Objective Data
-
Vital Signs:
Vital Signs
Temp Pulse Resp BP Pulse Ox
97.6 F 62 17 120/58 99
04/01/25 08:05 04/01/25 08:05 04/01/25 08:05 04/01/25 08:05 04/01/25 08:05
[2025-04-01] MEDS: ZESTRIL 5 MG PO (09:32)
[2025-04-01] MEDS: ULTRAM 50 MG PO ×2 (09:33→21:45)
[2025-04-01 09:43] LABS: Hematocrit 29.2 % (37.0-47.0); Hemoglobin 9.9 g/dL (12.0-16.0); Mean Corp Hgb Conc. 33.9 g/dL (33.0-37.0); Mean Corpuscular Hgb 28.9 pg (27.0-31.0); Mean Corpuscular Volume 85.1 fL (81.0-99.0); Mean Platelet Volume 7.9 fL (7.4-10.4); Platelet Count 422 10^3/uL (130-400); Red Blood Cell Count 3.43 10^6/uL (4.20-5.40); Red Cell Dist. Width 13.1 % (11.5-14.5); White Blood Cell Count 18.4 10^3/uL (4.8-10.8)
[2025-04-01 10:41] LABS: Blood Urea Nitrogen 12 mg/dl (7-17); Calcium 8.1 mg/dl (8.4-10.2); Carbon Dioxide 23 mmol/L (22-30); Chloride 107 mmol/L (98-107); Estimated Creatinine Clearance 61 ml/min; Glucose 128 mg/dl (70-99); Potassium 3.4 mmol/L (3.5-5.1); Sodium 135 mmol/L (135-145); eGFR > 60.00
--- NOTE | 2025-04-01 11:15 | PN.CDI ---
CDI
- -
CDI:
Physician Documentation Request
Admit Date: 03/30/25 22:54
Dear Doctor Joel,
Clinical Indicators:
Patient admitted with hypovolemic hyponatremia.
03/30 ED Report, 'Renal insufficiency could be likely dehydration'
Cr/GFR trend:
03/30/25 03/31/25 04/01/25
17:40 05:45 09:28
Creatinine 1.1 H 0.8 0.7
eGFR 54.39 > 60.00 > 60.00
Please clarify which of the following accurately represents the patient's renal status:
CONCHIS
Renal insufficiency only
Other, please specify
Criteria for CONCHIS*
1 Increase in serum creatinine by > or = to 0.3 mg/dL (> or = to 26.5 micromol/L) within 48 hours, OR
2 Increase in serum creatinine to > or = to 1.5 times baseline, which is known or presumed to have occurred within 7 days, OR
3 Urine volume < 0.5 nL/kg/hour for six hours
Use of terms such as suspected, likely, concern for, or probable (associated with a specific diagnosis that is being evaluated, monitored, or treated as if it exists) are acceptable and can be coded in the inpatient setting, when documented at the
time of discharge.
Thank you,
RADHA Rasmussen RN
CDI Specialist
available via tiger text
Please use your independent medical judgment in providing your response.
*Source: Kidney Disease: Improving Global Outcomes (KDIGO) 2012
[2025-04-01 11:50] VITALS: BP 133/68; PULSE 94; O2SAT 97
[2025-04-01 11:50] LABS: Absolute Neutrophils -Man Diff 16.9 10^3/uL (1.4-6.5); Band Neutrophils 7 % (0-3); Lymphocytes 4 % (20-51); Metamyelocytes 3 % (-); Monocytes 1 % (2-9); Normal RBC Morphology Yes; Platelets Checked Yes; Segmented Neutrophils 85 % (42-75)
[2025-04-01 11:51] LABS: Total Cells Counted 100
--- NOTE | 2025-04-01 12:06 | CM ---
Reviewed the chart notes and spoke with the patient at the bedside. Per patient, PT/OT evaluations are still pending. CM continues to be available to patient/family and is monitoring medical plan for needs at discharge.
Plan: Discharge plans will depend on the patient's progress.
[2025-04-01 12:23] VITALS: BP 133/68; PULSE 94; O2SAT 97
--- NOTE | 2025-04-01 14:27 | CON.ID ---
Consultation
-
Date/Time Consultation Requested: 04/01/25 9:22
Date/Time Consultation Performed: 04/01/25 14:27
Requesting Provider: Dr Maldonado
Performing Provider: Dr Stokes
Reason for Consultation: fever, leukocytosis
Chief Complaint / Past History
Chief Complaint
generalized pain
History of Present Illness
Ms Green is a 69 year old female with history of collagenous colitis, remote C difficile diarrhea (2020) who presented here 03/30 for generalized pain, anoreixa and diarrhea for several weeks. Reports occasional chills, no fevers or sweast.
No: cough, shortness of breath, dyspnea, chest pain, dysuria, rash, insect bites. Reports pain in the joints and muscles without swelling. Also with painful ulcerations of the lips not responding to dexamethasone.
Since arrival here tmax is 100.6 orally, only a single fever has been recorded, bp overall stable, wbc count 18 on arrival and 18 today, hgb 9.9, plt 422, L shift is noted, esr 53, na initially 128 now 135, cr 1.1 now 0.7, lfts wnl, uric acid 9.3,
crp 244, ua no pyuria and many squamous cells, RF positive at 256 IU referecne is <10, ccp/roel/pre3/mpo are pending, covid ag not yet checked, 03/30 cxr: no acute CP process, L ankle xray: no fracture or dislocation, patient was started on prednisone
40 mg PO qday on 03/31, ID is consulted for leukocytosis and L shift. She has not been started on antibiotics.
Past History
Additional Past Medical History:
Collagenous colitis
C. difficile diarrhea
E. coli diarrhea
Hypertension
M�ni�re's disease
Nephrolithiasis
Macular degeneration
Obstructive sleep apnea
Additional Past Surgical History:
Cholecystectomy, (x2), Orthopedic (CTR b/l), Other (Ventral hernia repair)
Allergy History:
No Known Drug Allergies Allergy (Verified 03/30/25 15:56)
Unknown
Medications Reviewed: Yes
Social History
Tobacco: Non-Smoker
Alcohol: None
Drug: None
Family History
Family History: Not Pertinent
Review of Systems
Review of Systems
General: Fever and Chills
All systems: All other systems were reviewed and were negative
Vital Signs
Temp Pulse Resp BP Pulse Ox
97.6 F 62 17 120/58 99
04/01/25 08:05 04/01/25 09:32 04/01/25 08:05 04/01/25 09:32 04/01/25 08:05
Physical Exam
Physical Exam
Constitutional: No Acute Distress and Chronically Ill
Head: Other (few shallow ulcers on oral mucosa)
Cardiovascular: Regular Rate and S1/S2; Negative Murmur or Rub
Pulmonary: Clear and Symmetric; Negative Wheezes, Rales or Rhonchi
Gastrointestinal: Soft, Non Tender, Non Distended and Normal Bowel Sounds
Skin: Warm and Dry; Negative Rash or Jaundice
Lab / Diagnostic Study Results
04/01/25 09:28
04/01/25 09:28
Abs Immat Gran (auto) 0.8 10^3/uL (0-0.05) H 03/30/25 17:40
Absolute Neuts (auto) 15.0 10^3/uL (1.4-6.5) H 03/30/25 17:40
Absolute Lymphs (auto) 1.8 10^3/uL (1.2-3.4) 03/30/25 17:40
Absolute Monos (auto) 0.6 10^3/uL (0.1-0.6) 03/30/25 17:40
Absolute Basos (auto) 0.2 10^3/uL (0-0.2) 03/30/25 17:40
Total Counted 100 04/01/25 09:28
Immature Gran % 4.3 % (0-0.5) H 03/30/25 17:40
Neutrophils % 81.8 % (42.2-75.2) H 03/30/25 17:40
Lymphocytes % 9.9 % (20.5-51.1) L 03/30/25 17:40
Monocytes % 3.1 % (1.7-9.3) 03/30/25 17:40
Eosinophils % 0.1 % (0-6) 03/30/25 17:40
Basophils % 0.8 % (0-2) 03/30/25 17:40
Abs Neuts (Manual) 16.9 10^3/uL (1.4-6.5) H 04/01/25 09:28
Segmented Neutrophils 85 % (42-75) H 04/01/25 09:28
Band Neutrophils 7 % (0-3) H 04/01/25 09:28
Lymphocytes (Manual) 4 % (20-51) L 04/01/25 09:28
ESR 53 mm/hour (0-20) H 03/30/25 17:40
PT 13.6 Sec (11.4-14.6) 03/30/25 17:40
INR 1.01 03/30/25 17:40
C-Reactive Protein 244.40 mg/L (0.0-10.00) H 03/30/25 17:40
Ur Squamous Epith Cells >30 /LPF (Few) 03/31/25 10:28
Microbiology Results
Micro:
03/31/25 10:28 Urine Culture - Final
Urine
03/30/25 22:47 Blood Culture - Preliminary
Blood/Venous No Growth in 24 hours- Final report to follow
03/30/25 22:56 Blood Culture - Preliminary
Blood/Venous No Growth in 24 hours- Final report to follow
Assessment / Plan
Isolated Fever
Leukocytosis
Suspected autoimmune disorder
- no clear focal cause of infection identified
- blood cultures x2 remain in progress will follow up
- ua negative, CXR without infiltrates
- check covid ag
- RF strongly positive
- uric acid quite elevated but myalgias/arthralgias are diffuse without specific joint involvement
- agree with holding antibiotics at the moment
- no objection to steroids, appears to be improving with them
- suggest follow up with rheumatology - could consider a second opinion
[2025-04-01 15:08] VITALS: BP 129/74
[2025-04-01 15:27] LABS: COVID-19 Antigen Negative (Negative)
[2025-04-01] MEDS: LOVENOX 40 MG SC (17:58)
[2025-04-01 19:29] LABS: Thyroglobulin Antibodies <1.5 IU/mL (0.0-4.0); Thyroid Peroxidase Ab (TPO) 0.4 IU/mL (0.0-9.0)
[2025-04-01 23:00] VITALS: BP 128/72
[2025-04-02 01:53] LABS: ANA, IgG Reflex to HEp-2 Detected (None Detected); CCP Antibody IgG/IgA 2 Units (0-19)
[2025-04-02 01:56] LABS: Myeloperoxidase Antibody 0 AU/mL (0-19); Serine Protease-3, IgG 1 AU/mL (0-19)
[2025-04-02 06:32] LABS: % Basophils 0.3 % (0-2); % Immature Granulocytes 2.3 % (0-0.5); % Lymphocytes 13.4 % (20.5-51.1); % Monocytes 4.4 % (1.7-9.3); % Neutrophils 79.6 % (42.2-75.2); Absolute Immature Granulocytes 0.3 10^3/uL (0-0.05); Absolute Lymphocytes 1.8 10^3/uL (1.2-3.4); Absolute Monocytes 0.6 10^3/uL (0.1-0.6); Absolute Neutrophils 10.9 10^3/uL (1.4-6.5); Hematocrit 29.3 % (37.0-47.0); Mean Corp Hgb Conc. 34.1 g/dL (33.0-37.0); Mean Corpuscular Hgb 29.2 pg (27.0-31.0); Mean Corpuscular Volume 85.4 fL (81.0-99.0); Mean Platelet Volume 8.1 fL (7.4-10.4); Nucleated Red Blood Cells % 0 %; Platelet Count 447 10^3/uL (130-400); Red Blood Cell Count 3.43 10^6/uL (4.20-5.40); White Blood Cell Count 13.7 10^3/uL (4.8-10.8)
[2025-04-02 07:15] LABS: Blood Urea Nitrogen 18 mg/dl (7-17); Calcium 8.7 mg/dl (8.4-10.2); Carbon Dioxide 25 mmol/L (22-30); Chloride 105 mmol/L (98-107); Estimated Creatinine Clearance 61 ml/min; Glucose 105 mg/dl (70-99); Potassium 3.5 mmol/L (3.5-5.1); Sodium 134 mmol/L (135-145); eGFR > 60.00
[2025-04-02 07:21] VITALS: BP 130/67
[2025-04-02] MEDS: TAPAZOLE 5 MG PO (08:46)
[2025-04-02] MEDS: ZESTRIL 5 MG PO (08:46)
[2025-04-02] MEDS: THERAGRAN 1 TABLET PO (08:46)
[2025-04-02] MEDS: DELTASONE 40 MG PO (08:46)
[2025-04-02] MEDS: OSCAL CAL 500 500 MG PO (08:46)
[2025-04-02] MEDS: ULTRAM 50 MG PO (08:46)
[2025-04-02] MEDS: PEPCID 20 MG PO (08:46)
--- NOTE | 2025-04-02 09:43 | W.PN.HOSP.TC ---
Today's Communication/Plan
-
d/c
Assessment / Plan
Assessment / Plan
Gen: remains NAD, AAOx3.
Eyes: EOMI, PERRLA, no scleral icterus.
Neck: supple.
CV: continues to remain RRR, +S1/S2, no m/r/g.
Resp: CTAB anteriorly, no rales, wheezes, or rhonchi.
Abd: continues to remain +BS, soft, NT, ND
Skin: No rashes.
Neuro: CN 2-12 intact, non-focal.
Psych: Normal mood and affect.
03/30/25 22:47 Blood/Venous Blood Culture - Preliminary
No Growth in 48 hours- Final report to follow
03/30/25 22:56 Blood/Venous Blood Culture - Preliminary
No Growth in 48 hours- Final report to follow
03/31/25 10:28 Urine Urine Culture - Final
CXR: No acute cardiopulmonary process.
L ankle Xray: No acute fracture.
Hypovolemic hyponatremia:
-from reduced intake and chronic diarrhea. Similar presentation before but then she needed hypertonic saline. Her TSH and cortisol were normal at that time.
-Na has improved with IVFs, now 134
-cortisol normal
Hyperthyroidism:
-TSH 0.28, fT4 0.28
-cont methimazole 5mg daily
-outpt endocrine eval
-fever could be due to hyperthyroidism
Leukocytosis:
-with L-shift
-no evidence of acute infection. CXR normal.
-one fever on 03/31/25 @ 1617, fever could be due to hyperthyroidism
-cont to monitor off abx
-follow BCxs (NGTD)
-appreciate ID, no evidence of infection at this time
-symptoms (weakness and myalgias) have improved with Prednisone
-suspect that pt's clinical presentation and constellation of symptoms related to acute autoimmune inflammatory process
Elevated inflammatory markers:
-CRP elevated as in the past
-ESR 53, was 87 on 01/03/25
-no headache, vision changes or jaw claudication
-RF 256, BERNARDINO POS
-anti-CCP/ANCAs NEG
-pt states she was seen by Dr. Riley in the past and was 'brushed off' and told she had a mild inflammatory state
-symptoms (weakness and myalgias) have improved with Prednisone
-suspect that pt's clinical presentation and constellation of symptoms related to acute autoimmune inflammatory process. Will need outpt rheum f/u.
-d/c on prednisone taper and short supply of Tramadol
FULL/Lovenox
Medically cleared for d/c. Case management aware.
Total time spent on d/c = 34 min. This included today's physical exam, progress note, review of laboratory and diagnostic data, preparation of discharge documents and prescriptions, and discussions about the pt's hospital course and discharge plan
with the patient and other medical records coder involved in the patient's care.
Anticipated Discharge: Today
Subjective/Interval History
-
Date of Service: April 02, 2025
No new complaints.
Objective Data
-
Labs:
Laboratory Results
04/02/25
06:06
WBC 13.7 H
Hgb 10.0 L
Hct 29.3 L
Plt Count 447 H
Sodium 134 L
Potassium 3.5
Chloride 105
Carbon Dioxide 25
BUN 18 H
Creatinine 0.7
Glucose 105 H
Calcium 8.7
Vital Signs:
Vital Signs
Temp Pulse Resp BP Pulse Ox
98.2 F 89 17 130/67 97
04/02/25 07:21 04/02/25 08:46 04/02/25 07:21 04/02/25 08:46 04/02/25 07:21
I&O
0504/02/25 04/03/25
06:59 06:59 06:59
Intake Total 1020 / 1020
Balance 1020 / 1020
--- NOTE | 2025-04-02 11:55 | CM ---
Addendum entered by Manisha Phipps 04/02/25 14:39:
Spoke with Lavelle at [phone]
Authorization approved - Auth #: [id number]
Start date 04/02/25 6 days NRD 04/07/25
Call with updates to [phone]
Called [facility] liaison at [facility] [place] & auth information given
PLAN: [facility] [place] [facility]
Report #: [phone]
Fax #: [phone]
transportation forms on chart - 5pm transport set
Addendum entered by Manisha Phipps 04/02/25 12:29:
[facility] NPI # [id number]
Dr. Jean Quinones #: [id number]
Marine from [facility] [place] accepted today, pending Ins auth
CM to call ins
COVID test negative yesterday, Marine notified
PLAN: [facility] [place] [facility]
Report #: [phone]
Fax #: [phone]
transportation forms on chart
Original Note:
Patient seen at bedside with
PT/OT rec SNF
Reviewed options - agreeable to SNF - [facility] [place]
Called [employer] liaison - referral entered in [facility]port
will need to obtain ins auth if accepted
IMM explaned & signed. In chart
PLAN: SNF, pending acceptance/bed availability
--- NOTE | 2025-04-02 13:55 | W.DCSUMMARY ---
Discharge Summary
Discharge Data
Date of Admission: 03/30/25
Date of Discharge: 04/02/25
-
Pending Results: No
Hospital Course
Primary diagnoses:
Hypovolemic hyponatremia
Hyperthyroidism
Generalized pain likely due to acute autoimmune inflammatory state
Leukocytosis with left shift
Secondary diagnoses:
None
Consultants:
Infectious disease
Imaging:
CXR: No acute cardiopulmonary process.
L ankle Xray: No acute fracture.
69-year-old female presented with a chief complaint of generalized pain as outlined in H&P done on admission. Hospital course per problem was:
Hypovolemic hyponatremia: This was from reduced intake and chronic diarrhea. She had a similar presentation before at which time she required hypertonic saline. Her TSH and cortisol were normal at that time. Her sodium improved with IV fluids.
Her cortisol was normal.
Hyperthyroidism: TSH 0.28, fT4 0.28. The patient was started on methimazole 5mg daily. She was instructed to follow-up with endocrinology after discharge.
Leukocytosis with L-shift: The patient had no evidence of acute infection. CXR normal. She had one fever on 03/31/25 @ 1617.the fever could have been due to hyperthyroidism and/or acute autoimmune inflammatory process. Patient did not receive
antibiotic therapy while hospitalized. Blood cultures were no growth while hospitalized. She was seen in consultation by infectious disease and they did not feel that the patient had any evidence of acute infection. The patient's symptoms
(weakness and myalgias) improved with Prednisone.it is most likely that the patient's clinical presentation and constellation of symptoms were related to acute autoimmune inflammatory process. CRP was elevated as was in the past. ESR 53, was 87 on
01/03/25. She had no headache, vision changes or jaw claudication. RF 256, BERNARDINO POS. Anti-CCP/ANCAs NEG. The patient stated she was seen by Dr. Riley in the past and was told she had a mild inflammatory state. The patient was discharged on
prednisone taper and short supply of Tramadol. She was instructed to follow-up with rheumatology.
Discharge Plan
-
Patient Disposition: Home (Routine Discharge)
Discharge Diagnosis/Procedures: Hypovolemic hyponatremia, hyperthyroidism, generalized pain likely due to acute autoimmune inflammatory state
Condition: Good
Diet: No restrictions
Activity: As tolerated
Driving Restrictions: Not until seen by your Dr
Blood Work: Thyroid function tests in 2 weeks, prescription from PCP
Activity Restrictions/Additional Instructions:
You need to follow-up with rheumatology as soon as possible. You need to make an appointment with endocrinology within 2 weeks.
Referrals:
Sena Kelley MD [Consulting Staff] - in one to two weeks
Marcelina Hernandez MD [Active] - in less than 1 week
Patti Tafoya DO [Family Provider] - in less than 1 week
Prescriptions:
New
tramadol 50 mg Tablet
50 mg PO Q6HPRN PRN (Reason: moderate pain) Qty: 7 0RF
methimazole 5 mg Tablet
5 mg PO DAILY Qty: 30 0RF
prednisone 10 mg tablet
10 mg PO DIRECTED Qty: 30 0RF
Rx Instructions:
Taper: 40mg daily x 3 days, 30mg daily x 3 days, 20mg daily x 3 days, 10mg daily x 3 days
Continued
therapeutic multivitamin Tablet
1 tab PO DAILY
acetaminophen [Tylenol] 325 mg Tablet
650 mg PO Q4H PRN (Reason: mild pain)
calcium carbonate 500 mg calcium (1,250 mg) Tablet
500 mg PO DAILY
famotidine 20 mg Tablet
20 mg PO DAILY
lisinopril 5 mg Tablet
5 mg PO DAILY
vitamin A-vitamin C-vit E-min Tablet
1 tab PO DAILY
Discharge Orders:
Discharge Patient (As Directed); Ordered 04/02/25
Ordered By: Ryan Maldonado
Discharge Date and Time
Print Language: MOZAMBICAN
[2025-04-02 15:14] VITALS: BP 152/84
[2025-04-03 19:46] LABS: ANA, HEp-2, IgG Detected (<1:80)
[2025-04-04 06:47] LABS: ANA Pattern Centromere; ANA Titer >1:2560
== END 2025-04-02 16:42 | DRG 815 ==
LOC: 3 WEST ACU 22:54
PROVIDERS: Emergency Medicine; ADMITTING PHYSICIAN Internal Medicine; ATTENDING PHYSICIAN Internal Medicine; EMERGENCY PHYSICIAN Student in an Organized Health Care Education/Training Program; FAMILY PHYSICIAN Internal Medicine; OTHER PHYSICIAN Student in an Organized Health Care Education/Training Program
DX: D89.9 Disorder involving the immune mechanism, unspecified (principal); E87.1 Hypo-osmolality and hyponatremia; E86.0 Dehydration; N28.9 Disorder of kidney and ureter, unspecified; E05.90 Thyrotoxicosis, unspecified without thyrotoxic crisis or storm; D72.829 Elevated white blood cell count, unspecified; R79.82 Elevated C-reactive protein (CRP); E86.1 Hypovolemia; Z11.52 Encounter for screening for COVID-19
CPT/HCPCS: 71046; 73610; 80048; 80053; 80061; 81003; 81015; 82533; 82550; 82607; 83516; 83690; 83935; 84300; 84439; 84443; 84550; 85025; 85027; 85610; 85652; 86038; 86039; 86140; 86200; 86376; 86430; 86431; 86800; 87040; 87086; 87811; 97162; 97167; 99291

== ENCOUNTER → 2025-04-28 11:20 | Outpatient (REF) | payer OTHER, SELFPAY | LOC: HWRAD 11:20 | PROVIDERS: ATTENDING PHYSICIAN Nurse Practitioner Family | DX: E05.90 Thyrotoxicosis, unspecified without thyrotoxic crisis or storm (principal) | CPT/HCPCS: 76536 ==

== ENCOUNTER → 2025-07-25 07:27 | Outpatient (REF) | payer OTHER, SELFPAY | LOC: HWWDC 07:27 | PROVIDERS: ATTENDING PHYSICIAN Internal Medicine | DX: Z12.31 Encounter for screening mammogram for malignant neoplasm of breast (principal) | CPT/HCPCS: 77063; 77067 ==

== ENCOUNTER → 2025-10-07 08:39 | Outpatient (REF) | payer OTHER, SELFPAY | LOC: HWRAD 08:39 | PROVIDERS: ATTENDING PHYSICIAN Physician Assistant; FAMILY PHYSICIAN Nurse Practitioner | DX: M35.9 Systemic involvement of connective tissue, unspecified (principal); M79.641 Pain in right hand; M79.642 Pain in left hand | CPT/HCPCS: 73130 ==